=== PATIENT | female | born 1950 | race Caucasian/White ===

== ENCOUNTER 2024-03-25 08:56 | Inpatient (IN) | payer MEDICARE, MEDICAID, SELFPAY ==
[2024-03-25] VITALS (11 sets, daily range): BP systolic 107–148; BP diastolic 69–95; PULSE 92–121; RESP 12–92; TEMP 36.4–36.8; O2SAT 90–100; BMI 16.2
--- NOTE | 2024-03-25 09:18 | PC.NURSE ---
PT BROUGHT IN FROM HOME FOR LEFT SIDED CHEST PAIN, HERE YESTERDAY FOR SAME COMPLAINT, DISCHARGED AND TOLD TO COME BACK IF PAIN WORSENS TO COME BACK, PT REORTS IT IS WORSE. CALL [facility] IN [place], AWAITING PROVIDERS ASSESSMENT.
--- NOTE | 2024-03-25 09:36 | PD.EDCHEST ---
ED Chest Pain RME/HPI General Chief Complaint: Chest Pain Stated Complaint: CHEST WALL PAIN Time Seen by Provider: 03/25/24 09:24 Arrival date/time: 03/25/24 08:56 RME / HPI RME / HPI narrative: 74 year old female with history of chronic pain on Methadone, COPD on 3L home o2, HFrEF 30-35% 12/2023, s/p pacemaker placement presents to the ED BIBA from home for complaint of chest pain today. Reports she was evaluated here yesterday for similar pain which has yet to resolve. Pain located most to the left side of chest, described as aching in sensation, rating as moderate. Accompanied by nausea and nonbloody vomiting. Adds she is unable to tolerate anything by mouth, including her medications. Denies fevers, chills, cough, shortness of breath, abdominal pain, or urinary symptoms. Related Data Home Medications ?Medication ?Instructions ?Recorded ?Confirmed methadone 10 mg tablet 110 mg PO QDAY 06/11/23 03/10/24 Previous Rx's ?Medication ?Instructions ?Recorded food supplemt, lactose-reduced 0.1 See Rx Instructions PO TID 1 month 04/18/23 gram-1.18 kcal/mL oral liquid #90 doses (Ensure Complete) ipratropium 0.5 mg-albuterol 3 mg 3 ml inhalation Q6H PRN shortness 04/18/23 (2.5 mg base)/3 mL nebulization of breath or wheezing #180 mL soln albuterol sulfate 90 mcg/actuation 2 puff inhalation Q4H PRN sob 1 10/16/23 aerosol inhaler week #8.5 grams albuterol sulfate 2.5 mg/3 mL 2.5 mg (3 mL) inhalation Q6H PRN 10/30/23 (0.083 %) solution for nebulization shortness of breath or wheezing #90 mL lidocaine 5 % topical patch 3 patch topical QDAY #30 ea 11/29/23 fluticasone furoate 100 1 inh inhalation QDAY #60 ea 12/26/23 mcg-vilanterol 25 mcg/dose inhalation powder (Breo Ellipta) atorvastatin 40 mg tablet 40 mg PO QHS #30 tabs 01/21/24 carvedilol 3.125 mg tablet 3.125 mg PO BID #60 tabs 01/21/24 gabapentin 300 mg capsule 300 mg PO TID PRN pain 1 month #90 01/21/24 caps losartan 25 mg tablet 25 mg PO QDAY #30 tabs 01/21/24 paroxetine HCl 30 mg tablet 30 mg PO QDAY #90 tabs 01/21/24 promethazine 12.5 mg tablet 12.5 mg PO TID PRN nausea and 02/27/24 vomiting #90 tabs duloxetine 30 mg capsule,delayed 30 mg PO QDAY 1 month #30 caps 02/29/24 release clonazepam 0.5 mg tablet 0.5 mg PO BID PRN anxiety #60 tabs 03/04/24 metoclopramide HCl 10 mg tablet 10 mg PO Q6H PRN nausea and 03/24/24 (Reglan) vomiting #30 tabs Allergies Allergy/AdvReac Type Severity Reaction Status Date / Time No Known Allergies Allergy Verified 03/25/24 09:17 Review of Systems Review of Systems Narrative Review of Systems: GEN: No fever, no chills, no weight loss EYES: No discharge, no visual changes, no pain HEENT: No ear pain, no congestion, no sore throat PULM: No shortness of breath, no cough, no congestion CV: + chest pain, no dyspnea on exertion, no palpitations GI: +nausea, +vomiting, no diarrhea, no pain, no constipation : No frequency, no urgency and no dysuria MUSC/SKEL No joint pain, no back pain SKIN: No rash NEURO: No weakness, no headache Past Medical History Past Medical History CARDIAC: Positive Cardiac Arrhythmia, Atrial Fibrillation, Coronary Artery Disease and Hypertension RESPIRATORY: Positive Chronic Obstructive Pulmonary Disease (COPD), Asthma and Bronchitis MUSCULOSKELETAL: Positive Arthritis, Osteoporosis and Degenerative Disk Disease HEMATOLOGIC: Positive Anemia PSYCHO/SOCIAL: Positive Depression and Anxiety OTHER HISTORY: Positive Falls, Blood Transfusions, Human Immunodeficiency Virus (HIV), Clostridium Difficile and Cancer Surgical History SURGICAL: Positive Coronary Stent, Pacemaker and Hysterectomy Social History SMOKING STATUS: Former smoker SECOND HAND EXPOSURE: Yes SUBSTANCE USE: former substance user (Polysubstance abuse for 40 years ago) and marijuana (Occasionally) ED Exam Narrative Physical exam: GENERAL APPEARANCE: Well hydrated, well nourished, in no acute distress. Cachectic, skinny female. VITALS: All vitals were reviewed and the pulse ox is 95% on 2L which is normal according to my interpretation. HEENT: Normocephalic, atramatic, EOMI, EACs are patent. There is no bulge or retraction. Throat without erythema or exudate. Moist oromucosa. No jaundice NECK: Supple, no JVD or bruits. CARDIOVASCULAR: Heart regular without S3-S4 or murmur. No rubs or gallops. LUNGS/CHEST: Clear to auscultation bilaterally. No rales, rhonchi, or wheezing. Normal inspection. ABDOMEN: Soft, mildly distended, minimally tender in the left lower quadrant, with normal bowel sounds. No pulsatile masses. No rebound, rigidity, or guarding. No incarcerated hernia. EXTREMITIES: Normal inspection and palpation. No edema, clubbing, or cyanosis. Intact CSM SKIN: Warm and dry without rashes. Normal inspection. MUSCULOSKELETAL: No gross deformity, full ROM all extremities NEURO: Alert and oriented x3. Cranial nerves II through XII grossly intact. There are no other motor or sensory deficits noted. PSYCHIATRIC: Normal mood and affect. No psychosis Course Quality Measures none Orders Category Date Time Status CT Screening NOW Care 03/25/24 12:00 Active EKG (ED ONLY) *Do not use* NOW Care 03/25/24 09:[address] abdomen pelvis w con Stat Exams 03/25/24 11:59 Completed EKG (ED Only) Stat Exams 03/25/24 09:46 Draft XR abdomen 1V Stat Exams 03/25/24 09:46 Completed CBC Stat Lab 03/25/24 10:19 Completed CMP [Comprehensive Metabolic Panel] Stat Lab 03/25/24 10:19 Completed Lipase Stat Lab 03/25/24 10:19 Completed Troponin I Stat Lab 03/25/24 10:19 Completed Morphine Inj Med 03/25/24 12:00 Discontinued 4 mg IVP X1 ONE Ondansetron Inj [Zofran Inj] Med 03/25/24 12:00 Discontinued 4 mg IV X1 ONE Sodium Chloride 0.9% 1000 ml [Ns] 1,000 ml Med 03/25/24 09:47 Discontinued IV 500 mls/hr Vital Signs Vital signs: Vital Signs Temperature 98 F 03/25/24 09:06 Pulse Rate 109 H 03/25/24 09:06 Respiratory Rate 16 03/25/24 09:06 Blood Pressure 148/91 H 03/25/24 09:06 Pulse Oximetry (%) 100 03/25/24 09:06 Oxygen Delivery Method Nasal Cannula 03/25/24 09:06 Oxygen Flow Rate 2 03/25/24 09:06 Chest Pain MDM Narrative MDM Narrative:: Gemini Wilder am scribing for and in the presence of Dr. Romo. WBC is 32,000. Sodium is 131 BUN of 29 indicating that she is dehydrated. Potassium is 3.1. Lipase is 70. Troponin is negative. Upright abdominal x-ray unfortunately getting cut off at the mid abdomen. So difficult to tell. But is still signs of small bowel obstruction. This x-ray was interpreted by me. No free air. [facility] [address] [place] [address] [place] [facility] Report Signed Patient: ELKE LEA. Record#: [id number] Birthdate: 1950 Age/Sex: 74 / F Location: [facility] Attending Dr: Ordering Physician: Arsh Romo MD Date of Service: 03/25/24 Procedure(s): CT abdomen pelvis w con Accession Number(s): [id number] cc: Michael Topete MD; NO PRIMARY/FAMILY,PHYSICIAN; Arsh Romo MD~ Examination: CT abdomen with intravenous contrast CT pelvis with intravenous contrast 2-D coronal reconstructions 2-D sagittal reconstructions Date and time of exam:March 25, 2024 1245 hrs. Indications: Generalized abdominal pain with nausea vomiting beginning 4 days ago. CTDI: vol (mGy) 4.95 DLP: (mGycm) 247 Technique: Multiple axial sections of the abdomen and pelvis have been obtained. 64 slice high-resolution scanner used. 3 mm axial sections have been obtained, post intravenous injection 36 cc [id number] 2-D sagittal, coronal reconstructions obtained. Low dose protocols were performed. One or more of the following dose reduction techniques were used; automated exposure control, adjustment of the mA and/or KV according to patient size, use of iterative reconstruction technique. Findings: COPD with focal areas of airspace destruction No focal liver lesions No gallstones Fluid distended stomach Markedly fluid distended small bowel loops to ileal level Colon is decompressed No definite pancreatic mass Heavy abdominal aortic calcification no aneurysmal dilatation No hydronephrosis Probable right renal arterial calcification No bladder mass Left hip bipolar hemiarthroplasty with satisfactory alignment Advanced right hip osteoarthritis Severe osteopenia Advanced degenerative disc disease L3-L4 and L2-L3 Impression: High-grade mechanical small bowel obstruction, consider Gastrografin small bowel series follow-up Dictated By: Michael Topete MD Signed By: <Electronically signed by Michael Topete MD in OV> 03/25/24 1335 DD/ 1332 TD/TT: 03/25/24 1332 Relief Driller: MCKENZIE Chest x-ray was done yesterday and there is no reason to repeat it. Twelve-lead EKG that was done at 10:06 AM and interpreted by me: Sinus rhythm. Heart rate 105. Left axis. No ST elevation. No ST depression. No PVC. No STEMI. Right bundle branch block pattern. 2:15 PM, I spoke to and discussed with Dr. Abdi, surgeon on-call. He said to tell the hospitalist to do small bowel series and if it is positive they can call me. 2:40 PM, I spoke to and discussed with Dr. Nance, hospitalist on-call. He agreed to admit the patient for further evaluation and treatment. In the meantime I am ordering for n.p.o. IV fluid and nasogastric suctioning Critical care time is approximately 35 minutes excluding any procedure. The high probability of sudden, clinically significant deterioration in the patient?s condition required the highest level of my preparedness to intervene urgently. The services I provided to this patient were to treat and/or prevent clinically significant deterioration. Services included the following: chart data review, reviewing nursing notes and/or old charts, documentation time, strategic sourcing consultant collaboration regarding findings and treatment options, medication orders and management, direct patient care, vital sign assessments and ordering, interpreting and reviewing diagnostic studies and lab tests. Aggregate critical care time includes only time during which I was engaged in work directly related to the patient?s care, as described above, whether at bedside or elsewhere in the Emergency Department. It did not include time spent performing other reported procedures or the services of residents, students, nurses or physician assistants. Patient data External records reviewed:: [facility] [place] previous records (I reviewed ED visit yesterday 03/24/2024) and EMS form Clinical information provided by:: patient and EMS Social determinants that could affect healthcare access:: substance use (previous heroin use currently on methadone ) Patient has the following chronic illnesses:: chronic pain on Methadone, COPD on 3L home o2, HFrEF 30-35% 12/2023, s/p pacemaker placement How is presenting disease/condition affected by chronic disease/condition?: exacerbated by Evaluation data The following diagnostics were reviewed and interpreted by me:: lab results Lab and/or radiology exams considered but not ordered:: None Interpretation Summary: See MDM Medications / Prescriptions Medications or Prescriptions considered but not ordered:: None Medication administrations:: Medication Administration History Discontinued Medications Sodium Chloride (Ns) 1,000 mls @ 500 mls/hr IV .Q2H ONE Stop: 03/25/24 11:46 Last Infusion: 03/25/24 12:40 Dose: Infused Documented By: Admin: 03/25/24 10:38 Dose: 500 mls/hr Documented By: RAYMOND Morphine Sulfate (Morphine Sulf Inj 10 Mg/Ml Vial) 4 mg IVP X1 ONE Stop: 03/25/24 12:01 Last Admin: 03/25/24 13:03 Dose: 4 mg Documented By: RAYMOND Ondansetron HCl (Ondansetron Inj 2 Mg/Ml Inj 2 Ml) 4 mg IV X1 ONE; Protocol Stop: 03/25/24 12:01 Last Admin: 03/25/24 13:04 Dose: 4 mg Documented By: RAYMOND See above Consultations Consultation(s) initiated? (list below): Yes Diagnosis Most likely diagnosis given after review of the tests above:: High-grade small bowel obstruction Admission Indicated Admission indicated?: indicated Admission Request Was there a request for admission?: Yes Admission Attestation Admission request attestation: Discussed case with [] from Hospitalist service regarding admission. Discussed patients ED course, exam findings, labs, and radiology results. The Hospitalist [agrees,declines] to accept the patient for admission. Disposition Plan Disposition Plan: Admit Discharge Plan Plan Patient Disposition: Admit Acute Care w/in Hospital Disposition Comment: Stable Prescriptions/Referrals Prescriptions/Med Rec: No Action Ensure Complete 0.1 gram-1.18 kcal/mL liquid See Rx Instructions PO TID 30 Days Qty: 90 2RF Rx Instructions: 10oz orally three times a day; ipratropium-albuterol 0.5 mg-3 mg(2.5 mg base)/3 mL solution for nebulization 3 ml inhalation Q6H PRN (Reason: shortness of breath or wheezing) Qty: 180 3RF lidocaine 5 % adhesive patch,medicated 3 patch topical QDAY Qty: 30 0RF Rx Instructions: leave on most painful area for up to 12 hrs fluticasone furoate-vilanterol [Breo Ellipta] 100-25 mcg/dose blister with device 1 inh inhalation QDAY Qty: 60 1RF albuterol sulfate 90 mcg/actuation HFA aerosol inhaler 2 puff INHALATION Q4H PRN (Reason: sob) 7 Days Qty: 8.5 5RF paroxetine HCl 30 mg tablet 30 mg PO QDAY Qty: 90 2RF carvedilol 3.125 mg tablet 3.125 mg PO BID Qty: 60 2RF Rx Instructions: must administer with a meal/food atorvastatin 40 mg tablet 40 mg PO QHS Qty: 30 3RF gabapentin 300 mg capsule 300 mg PO TID MDD 3 PRN (Reason: pain) 30 Days Qty: 90 3RF losartan 25 mg tablet 25 mg PO QDAY Qty: 30 3RF promethazine 12.5 mg tablet 12.5 mg PO TID PRN (Reason: nausea and vomiting) Qty: 90 0RF albuterol sulfate 2.5 mg /3 mL (0.083 %) solution for nebulization 2.5 mg inhalation Q6H PRN (Reason: shortness of breath or wheezing) Qty: 90 2RF clonazepam 0.5 mg tablet 0.5 mg PO BID PRN (Reason: anxiety) Qty: 60 0RF duloxetine 30 mg Capsule,Delayed Release(Dr/Ec) 30 mg PO QDAY 30 Days Qty: 30 0RF metoclopramide HCl [Reglan] 10 mg tablet 10 mg PO Q6H PRN (Reason: nausea and vomiting) Qty: 30 0RF methadone 10 mg Tablet 110 mg PO QDAY Referrals: No Primary/Family,Physician [Primary Care Provider] - In 1 week Problem List Clinical Impression: SBO (small bowel obstruction), Dehydration Patient/Caregiver Discharge Instructions Print Language: [place] Stand Alone Forms: [facility] Award Info., Patient Portal Info Letter
--- NOTE | 2024-03-25 09:46 | EKG_ITS ---
[facility] Test Date: 2024-03-25 Pat Name: ELKE LEA Department: Room: - Gender: Female Classification Inspector: : 1950 Requested By: Arsh Romo Order Number: [id number] Reading MD: Arsh Romo Measurements Intervals [place] Rate: 105 P: 82 ND: 119 QRS: -74 QRSD: 94 T: 89 QT: 343 QTc: 455 Interpretive Statements SINUS TACHYCARDIA WITH SHORT ND INTERVAL POSSIBLE LEFT ATRIAL ENLARGEMENT [-0.1mV P WAVE IN V1/V2] MARKED LEFT AXIS DEVIATION [QRS AXIS < -30] INCOMPLETE RIGHT BUNDLE BRANCH BLOCK [90+ ms QRS DURATION, TERMINAL R IN V1/V2, 40+ ms S IN I/aVL/V4/V5/V6] ST DEVIATION AND MODERATE T-WAVE ABNORMALITY, CONSIDER ANTERIOR ISCHEMIA [-0.1+ mV T WAVE IN V3/V4] Compared to ECG 03/24/2024 15:10:24 Short ND interval now present Incomplete right bundle-branch block now present T-wave abnormality now present Possible ischemia now present ST (T wave) deviation no longer present /store/S0/[id number]/ecg/[id number].pdf
--- NOTE | 2024-03-25 09:46 | XR_ITS ---
Examination: Abdomen AP single view Technique: AP portable supine abdomen, single view Exam date and time: March 25, 2024 0952 hrs. Indications: Constipation this week Findings: Multiple air distended small bowel loops No free air Mild elevation left hemidiaphragm Cardiac leads satisfactory position Impression: Small bowel obstruction pattern, consider CT scan abdomen pelvis post intravenous contrast follow-up
[2024-03-25 10:30] LABS: Basophils % (Auto) 0 % (0-2.5); Eosinophils % (Auto) 0 % (0-10); Hematocrit 36.9 % (36.0-46.0); Hemoglobin 12.1 g/dL (12.0-16.0); Immature Granulocytes % (Auto) 1 % (0-0); Immature Granulocytes Auto 0.13 Thou/mm3 (0.00-0.00); Lymphocytes # (Auto) 1.7 Thou/mm3 (1.0-4.8); Lymphocytes % (Auto) 8 % (10-50); Mean Corpuscular HGB Conc 32.8 g/dl (31.0-37.0); Mean Corpuscular Volume 89 fL (80-100); Monocytes # (Auto) 0.7 Thou/mm3 (0.0-0.8); Monocytes % (Auto) 3 % (0-12); Neutrophils # (Auto) 19.8 Thou/mm3 (1.8-7.7); Neutrophils % (Auto) 88 % (37-80); Nucleated Red Blood Cell % 0 /100 WBC (0); Platelet Count 509 Thou/mm3 (140-440); Red Blood Count 4.17 Miln/mm3 (4.00-5.20); White Blood Count 22.4 Thou/mm3 (3.6-11.0)
[2024-03-25] MEDS: SODIUM CHLORIDE 0.9% 1000 ML 1,000 ML 500 ML IV (10:38)
[2024-03-25 11:11] LABS: Alanine Aminotransferase < 7 U/L (10-49); Albumin, Serum 3.8 gm/dL (3.4-4.8); Alkaline Phosphatase 104 U/L (46-116); Anion Gap 7 (7-16); Aspartate Amino Transferase 19 U/L (0-34); BUN/Creatinine Ratio 36 Ratio (12-20); Bilirubin,Total 0.3 mg/dL (0.3-1.2); Blood Urea Nitrogen 29 mg/dL (9-23); Calcium 9.9 mg/dL (8.3-10.6); Calcium (Corrected) 10.1 mg/dL (8.5-10.1); Carbon Dioxide > 40.0 mMol/L (20.0-31.0); Chloride 84 mMol/L (98-107); Creatinine (Component) 0.8 mg/dL (0.6-1.3); Estimated Creatinine Clearance 49.3 mL/min (>60); Globulin 3.8 gm/dL (2.3-3.5); Glucose 128 mg/dL (74-106); Lipase 70 U/L (12-53); Osmolality,Calculated 270 (275-295); Potassium 3.1 mMol/L (3.4-5.1); Sodium 131 mMol/L (136-145); Total Protein 7.6 gm/dL (5.7-8.2); Troponin I < 0.020 ng/mL (0.0-0.045); eGFR > 60 See Note
--- NOTE | 2024-03-25 11:59 | XR_ITS ---
Examination: CT abdomen with intravenous contrast CT pelvis with intravenous contrast 2-D coronal reconstructions 2-D sagittal reconstructions Date and time of exam:March 25, 2024 1245 hrs. Indications: Generalized abdominal pain with nausea vomiting beginning 4 days ago. CTDI: vol (mGy) 4.95 DLP: (mGycm) 247 Technique: Multiple axial sections of the abdomen and pelvis have been obtained. 64 slice high-resolution scanner used. 3 mm axial sections have been obtained, post intravenous injection 36 cc Isovue-[id number] 2-D sagittal, coronal reconstructions obtained. Low dose protocols were performed. One or more of the following dose reduction techniques were used; automated exposure control, adjustment of the mA and/or KV according to patient size, use of iterative reconstruction technique. Findings: COPD with focal areas of airspace destruction No focal liver lesions No gallstones Fluid distended stomach Markedly fluid distended small bowel loops to ileal level Colon is decompressed No definite pancreatic mass Heavy abdominal aortic calcification no aneurysmal dilatation No hydronephrosis Probable right renal arterial calcification No bladder mass Left hip bipolar hemiarthroplasty with satisfactory alignment Advanced right hip osteoarthritis Severe osteopenia Advanced degenerative disc disease L3-L4 and L2-L3 Impression: High-grade mechanical small bowel obstruction, consider Gastrografin small bowel series follow-up
--- NOTE | 2024-03-25 12:39 | PC.NURSE ---
Pt was taken to Ct at this time
[2024-03-25] MEDS: MORPHINE SULF INJ 10 MG/ML VIAL 4 MG IVP (13:03)
[2024-03-25] MEDS: ONDANSETRON INJ 2 MG/ML INJ 2 ML 4 MG IV (13:04)
--- NOTE | 2024-03-25 15:30 | PD.RESHP ---
Documentation for date of: 03/25/24 HPI History of Present Illness History of present illness: Chief complaint Vomiting HPI: Patient is a 74-year-old female with an extensive medical history including coronary artery disease, HFrEF 30-35%, s/p pacemaker 2018, COPD on 2 L home O2, squamous cell carcinoma of the lung [02/2024]. She presented today to the ED with multiple episodes of non-bilious vomiting overnight and absolute constipation. There was no associated hematemesis, and no flatus passed since yesterday. Of note patient is on methadone 110 mg p.o. daily for chronic lower back pain. In the ED, vitals showed BP 148/91 Pulse 109 Resp 16 Temp 98F SpO2 100 on 2 L NC On imaging, Adomen/pelvis CT : High-grade mechanical small bowel obstruction, consider Gastrografin small bowel series follow-up. EKG: Sinus tachycardia, rate 105 Patient was admitted for the work-up and management of Small bowel Obstruction General Surgery, Dr. Abdi was consulted and is closely following the case. Past medical history: ? Coronary artery disease ? HFrEF ? Essential hypertension ? Hyperlipidemia ? PTSD ? Depression ? COPD ? Chronic back pain ? Squamous cell carcinoma of lung [02/2024] Medication list: ?Albuterol inhaler 2 puffs every 4 hourly as needed ? Atorvastatin 40 mg p.o. at bedtime ? Carvedilol 3.125 mg p.o. twice daily ? Clonazepam 0.5 mg p.o. twice daily ? Duloxetine 30 mg p.o. daily ? Fluticasone/vilanterol 25 mcg inhaler ? Gabapentin 300 mg p.o. 3 times daily as needed ? Ipratropium/albuterol 3 mg inhalation Q6 hourly ? Lidocaine 5% topical patch ? Losartan 25 mg p.o. daily ? Methadone 110 mg p.o. daily ? Metoclopramide 10 mg p.o. as needed ? Promethazine 12.5 mg p.o. 3 times daily Past surgical history: ?Left hip replacement ?Hysterectomy Allergies: NKDFA Social history: Tobacco use: 40 pack year history. Quit 1 month ago ETHO use: Denies Illicit drug use: Denies Social History Note: lives with daughter Review of Systems Review of Systems Systems Reviewed: All systems reviewed, normal except as documented Exam Vital Signs Temp Pulse Resp BP Pulse Ox O2 Del Method O2 Flow Rate 97.7 F 121 H 14 118/92 H 98 Nasal Cannula 2 03/25/24 14:12 03/25/24 14:12 03/25/24 14:12 03/25/24 14:12 03/25/24 14:12 03/25/24 14:12 03/25/24 14:12 Narrative Exam Constitutional Alert, oriented x 3 and in mild distress. Cachexia and temporal wasting HEENT Vision grossly intact. Patent nares. Trachea midline Respiratory Pacemaker noted on left and generalized wheezing bilaterally in all lung jacobs Cardiovascular S1 and S2 audible, RRR. No murmurs carotid bruit. No gross JVD. Abdominal Tense and generalized tenderness to palpation in all quadrants. Absent BS Genitourinary No bladder tenderness, no flank pain. Normal to palpation Musculoskeletal Extremities tone within normal limits. No LE edema. Neurological CN II - XII grossly intact. Extremity motor and sensation grossly intact. Skin Warm, dry and intact. No apparent lesions. Psychiatric Patient has good affect, is cooperative Results: Labs 03/27/24 04:45 03/27/24 04:45 Labs: Short CBC 03/25/24 Range/Units 10:19 WBC 22.4 H (3.6-11.0) Thou/mm3 Hgb 12.1 (12.0-16.0) g/dL Hct 36.9 (36.0-46.0) % Plt Count 509 H D (140-440) Thou/mm3 BMP 03/25/24 10:19 Sodium 131 L Potassium 3.1 L Chloride 84 L Carbon Dioxide > 40.0 H BUN 29 H Creatinine 0.8 Glucose 128 H Calcium 9.9 Cardiac Enzymes 03/25/24 Range/Units 10:19 Troponin I < 0.020 (0.0-0.045) ng/mL Liver Function 03/25/24 Range/Units 10:19 Total Bilirubin 0.3 (0.3-1.2) mg/dL AST 19 (0-34) U/L ALT < 7 L (10-49) U/L Alkaline Phosphatase 104 (46-116) U/L Albumin 3.8 D (3.4-4.8) gm/dL Quality Measures Quality Measures none Advance care planning discussed with:: patient Medications Home Medications and Allergies Home Medications ?Medication ?Instructions ?Recorded ?Confirmed ?Type methadone 10 mg tablet 110 mg PO QDAY 06/11/23 03/25/24 History omeprazole 40 mg capsule,delayed 40 mg PO DAILY 03/25/24 03/25/24 History release Allergies Allergy/AdvReac Type Severity Reaction Status Date / Time No Known Allergies Allergy Verified 03/25/24 09:17 Visit Medications Acetaminophen (Acetaminophen Supp 650 Mg Supp) 650 mg OK Q6HR PRN PRN Reason: Fever > 100.3 or pain 1-6 Stop: 04/24/24 14:58 Carvedilol (Carvedilol 3.125 Mg Tablet) 3.125 mg PO BIDWM HUYEN Stop: 04/24/24 17:29 Gabapentin (Gabapentin 300 Mg Capsule) 300 mg PO TID PRN PRN Reason: AGITATION Stop: 04/24/24 15:14 Heparin Sodium (Porcine) (Heparin Sod Inj 5000 Unit/Ml Vial) 5,000 unit SC Q8HR HUYEN Stop: 04/08/24 15:14 Potassium Chloride (Kcl Ivpb) 10 meq in 100 mls @ 100 mls/hr IV Q1H STA Stop: 03/25/24 15:48 Sodium Chloride (Ns) 1,000 mls @ 50 mls/hr IV .Q20H HUYEN Stop: 04/24/24 14:59 Methadone HCl (Methadone Hcl 10 Mg Tablet) 110 mg PO QDAY HUYEN Stop: 03/31/24 08:59 Morphine Sulfate (Morphine Sulf Inj 10 Mg/Ml Vial) 2 mg IVP Q4HR PRN PRN Reason: PAIN SCALE 7-10 (Severe Stop: 03/30/24 15:21 Ondansetron HCl (Ondansetron Inj 2 Mg/Ml Inj 2 Ml) 4 mg IV Q6H PRN; Protocol PRN Reason: NAUSEA OR VOMITING Stop: 04/24/24 15:03 Discontinued Medications Acetaminophen (Acetaminophen Supp 650 Mg Supp) 650 mg OK Q6HR PRN PRN Reason: Fever > 100.3 or pain Stop: 04/24/24 14:58 Sodium Chloride (Ns) 1,000 mls @ 500 mls/hr IV .Q2H ONE Stop: 03/25/24 11:46 Last Infusion: 03/25/24 12:40 Dose: Infused Sodium Chloride (Ns) 1,000 mls @ 90 mls/hr IV .Q11H7M ONE Stop: 03/26/24 01:54 Lidocaine HCl (Lidocaine Jelly 2% (Urojet) 10 Ml Tube) 10 ml TOP X1 STA Stop: 03/25/24 14:48 Morphine Sulfate (Morphine Sulf Inj 10 Mg/Ml Vial) 4 mg IVP X1 ONE Stop: 03/25/24 12:01 Last Admin: 03/25/24 13:03 Dose: 4 mg Ondansetron HCl (Ondansetron Inj 2 Mg/Ml Inj 2 Ml) 4 mg IV X1 ONE; Protocol Stop: 03/25/24 12:01 Last Admin: 03/25/24 13:04 Dose: 4 mg Assessment & Plan Plan Patient is a 74-year-old female with an extensive medical history including coronary artery disease, HFrEF 30-35%, s/p pacemaker 2018, COPD on 2 L home O2, squamous cell carcinoma of the lung [02/2024]. She presented today to the ED with multiple episodes of non-bilious vomiting overnight and absolute constipation. There was no associated hematemesis, and no flatus passed since yesterday. Of note patient is on methadone 110 mg p.o. daily for chronic lower back pain. On imaging, Adomen/pelvis CT : High-grade mechanical small bowel obstruction, consider Gastrografin small bowel series follow-up. General Surgery, Dr. Abdi was consulted and is closely following the case. Patient was admitted for the work-up and management of Small bowel Obstruction. 1. Small bowel obstruction?acute 2. Leukocytosis Presentation: Nonbilious vomiting and constipation, no flatus Exam: Absent bowel sounds and generalized tenderness to abdomen. Patient has history of abdominal surgery, hysterectomy. Etiology: Adhesions, methadone use General surgery, Dr. Abdi consulted. On admission WBC 22.4 Plan: ? N.p.o. ? Conservative management ? NGT on suction ? IVF D5/NS at 75 mL/hour - CXR after NGT to confirm placement. - KUB xray on 03/26 to confirm resolution. ? If no resolution for small bowel series tomorrow. ? General Surgery, Dr Abdi consulted. Appreciate recommendations 3. Systolic congestive heart failure with reduced ejection fraction [30-35%] BNP [03/24] = 88 NYHA : Stage C , Class III Echo : [12/30] echocardiogram: Mild systolic dysfunction. Akinesis apical septal and lateral. Estimated EF 30-35%. Home diuretic : none Plan: - Daily weight - Input/output charting ? Carvedilol 3.125 mg p.o. twice daily 4. COPD?chronic 5. Metabolic Alkalosis - chronic Chronic metabolic alkalosis in setting of compensated COPD Patient is on 2 L home oxygen as baseline Home medication fluticasone/vilanterol 1 puff daily On admission : HCO3 > 40 Plan: ? O2 therapy as needed to maintain sats at 88-92% ? DuoNebs every 6 hourly as needed 6. Essential hypertension?chronic On admission BP 148/91 Home medication losartan 25 mg p.o. daily Plan: ? Home medication held for now as patient is n.p.o. for SBO ? To consider restarting home medication if SBP more than 160 7. Chronic lower back pain Home medication methadone 110 mg p.o. daily and gabapentin 300 mg p.o. 3 times daily as needed. Plan: ? Resume methadone 110 mg p.o. daily ? Resume gabapentin 300 mg p.o. 3 times daily as needed Health maintenance: Disposition: Conservative management SBO. NGT on suction and IVF Diet: NPO Lines: pIVs GI Prophylaxis: Ondansetron Thrombo Prophylaxis: Heparin Code status: DNR Plan of care discussed with attending Dr Nance and Dr. Ovalle PGY 2 Todd Najera MD PGY 1 Senior resident attestation: I discussed with and supervised the cisco certified internetwork expert physician who took care of this patient. I personally saw and examined the patient and discussed the assessment and plan with the entire medicine team, including my attending Dr. Lee Ann MD, I agree with the assessment and plan as documented above. Patient is a 74-year-old female, past medical history of coronary artery disease, ischemic and toxic cardiomyopathy, HFrEF 30 to 35%, status post pacemaker 2019, opioid use disorder, currently on methadone, COPD on 2 L home oxygen, squamous cell carcinoma of the lung, who presented to the ER due to intractable nausea and vomiting as well as constipation. Patient reported she was not able to pass gas all day, but did have a bowel movement yesterday. Small bowel obstruction: Initial imaging in the ER showed high-grade mechanical small bowel obstruction, distended fluid-filled stomach, small bowel distention and no air in rectum. General surgeon Dr. Abdi was consulted. Patient is kept n.p.o., started on IV fluids and nasogastric tube with continuous suction. Chest x-ray postprocedure showed NG tube in good position. Plan for small bowel series with Gastrografin once stomach decompression is achieved. Opiate abuse disorder: Patient currently on 110 mg methadone, reported she takes her methadone 4 AM every morning, but this morning when she took it she immediately vomited it out, we will resume patient's home dose of methadone daily. HFrEF: Continue with carvedilol 3.125 mg twice daily, patient has a history of pacemaker but does not remember when she last saw her anode builder. Chart review shows patient was seen by Dr. Earl Strauss recently during hospital visit. EKG shows sinus tachycardia, no acute ischemic changes. Currently patient is clinically dry on examination. No evidence of volume overload. COPD: Continue with DuoNebs Metabolic alkalosis: Likely secondary to continuous vomiting and loss of gastric contents. MD Vasquez PGY2 Attending Provider Attestation/Addendum Face to face evaluation was performed by me. I have personally seen and examined the patient. I discussed the assessment and plan with the entire medicine team. I reviewed available medical records, imaging studies, laboratory results. I agree with the above subjective data, objective findings, assessment and plan except as corrected by me or noted below Abdominal pain, periumbilical mainly Nausea and vomiting Pacemaker placement Hx of DM Hx of opioid dependance now on methadone Rx - HLD - IV Fluids, NPO, prn antiemetics, NG tube with suction. Gen Surgery was contacted Dr Abdi who recommended to obtain Small bowel series - due to severe small bowel distention and significant amount of suction fluids will postpone SB series until tmr. Monitor clinical course closely
--- NOTE | 2024-03-25 15:33 | PD.EVENT ---
Documentation for date of: 03/25/24 Event Note Event Note: Advance care planning spent extra 18 minutes separately Patient awake and oriented has DM capacity no advanced directives available. States that has as niece who can potentially be her next of kin maybe, but no Medical POA. Discussed with her code status in state of [place], and patient wants to be DNR.
[2024-03-25] MEDS: POTASSIUM CHL 10 mEq IVPB 10 MEQ/100 ML BAG 100 MEQ IV ×2 (15:54→20:00)
[2024-03-25] MEDS: LIDOCAINE JELLY 2% (Urojet) 10 ML TUBE TOP (15:55)
--- NOTE | 2024-03-25 16:36 | XR_ITS ---
Examination: AP chest single view Technique one AP portable semiupright chest single view Exam date and time: March 25, 2024 1645 hrs. Comparison February 29, 2024 Indications: Post orogastric tube placement Findings: Orogastric tube in the stomach, tip below the level film COPD with bullous change at the right apex Normal heart size Cardiac leads stable position Lobulation right hemidiaphragm Impression: Severe COPD including bullous change at the right apex and right apical parenchymal scarring Orogastric tube in stomach satisfactory position
[2024-03-25] MEDS: DEXTROSE 5%-NS 1,000 ML 60 ML IV (16:41)
--- NOTE | 2024-03-25 17:32 | PC.NURSE ---
RFreport given to Anjelica YOUNG
[2024-03-25] MEDS: ALBUTEROL/IPRATROPIUM (Duoneb) RT SOL 3 ML NEBU INH (19:28)
[2024-03-25] MEDS: MORPHINE SULF INJ 10 MG/ML VIAL 2 MG IVP (19:59)
--- NOTE | 2024-03-25 20:09 | ESCONSULT_ITS ---
HPI Consult details Consult date: 03/25/24 Reason for consultation narrative: Small bowel obstruction History of present illness: 74-year-old female with history of hypertension, hyperlipidemia, CAD status post pacemaker, COPD on home oxygen, was recently diagnosed with squamous cell carcinoma of the lung. She came into the emergency department with a week history of abdominal pain with nausea and vomiting. Her symptom has been gettin g progressively worse over the past few days and she has not been able to eat or tolerate any food. She states that she has been passing flatus and her last bowel movement was yesterday. CT scan revealed dilated loops of small bowel concerning for high-grade small bowel obstruction. An NG tube was placed and patient was admitted for further management. Review of Systems Constitutional Constitutional: Denies chills and Denies fever(s) Cardiovascular Cardiovascular: Denies chest pain Respiratory Respiratory: Denies cough Gastrointestinal Gastrointestinal: Reports abdominal pain, Reports nausea and Reports vomiting Genitourinary Genitourinary: Denies difficulty voiding Hematologic/Lymphatic Hematologic/Lymphatic: Denies easy bleeding and Reports easy bruising Past Medical History Surgical History OTHER SURGICAL HX: Hysterectomy, left hip hemiarthroplasty, pacemaker implantation Social History SMOKING STATUS: Former smoker (Recently quit smoking) SUBSTANCE USE: marijuana ALCOHOL: Former Meds Home Medications and Allergies Home Medications ?Medication ?Instructions ?Recorded ?Confirmed ?Type methadone 10 mg tablet 110 mg PO QDAY 06/11/23 03/10/24 History Allergies Allergy/AdvReac Type Severity Reaction Status Date / Time No Known Allergies Allergy Verified 03/25/24 09:17 Exam Vital Signs Temp Pulse Resp BP Pulse Ox O2 Del Method O2 Flow Rate 97.6 F 110 H 15 107/85 H 90 L Room Air 2 03/25/24 19:51 03/25/24 19:51 03/25/24 19:51 03/25/24 19:51 03/25/24 19:51 03/25/24 19:51 03/25/24 14:12 Constitutional Constitutional: no acute distress Routine Abdominal Exam Comments: Abdomen is soft and very minimally distended with hypoactive bowel sounds. No evidence of peritonitis or rebound tenderness at this time Results Results: Laboratory Laboratory results: results reviewed Results: Imaging CT scan - abdomen: report reviewed and image reviewed CT scan - pelvis: report reviewed and image reviewed Assessment & Plan Problem List (1) Intestinal adhesions [bands], unspecified as to partial versus complete obstruction: Status: Acute Plan Keep patient n.p.o. with IV fluids and NG tube decompression. Will obtain small bowel series tomorrow. Clinically patient is stable, abdominal exam is benign at this time. No indications for surgical intervention at this time, I will follow her during hospitalization. (1) Intestinal adhesions [bands], unspecified as to partial versus complete obstruction Qualifiers: Intestinal obstruction extent: unspecified extent Qualified Code(s): K56.50 - Intestinal adhesions [bands], unspecified as to partial versus complete obstruction
[2024-03-25] MEDS: HEPARIN SOD INJ 5000 UNIT/ML VIAL SC (21:30)
[2024-03-26] VITALS (12 sets, daily range): BP systolic 92–140; BP diastolic 59–86; PULSE 76–126; RESP 16–95; TEMP 36.1–36.4; O2SAT 90–99; BMI 12.9
--- NOTE | 2024-03-26 | XR_ITS ---
Examination: Abdomen AP single view Technique: AP portable supine abdomen, single view Exam date and time: March 26, 2024 1553 hrs. Indications: 5 are delayed film post small bowel series today abdominal pain and distention Findings: Contrast is diluted in dilated jejunal loops, measuring up to 5.4 cm Impression: Small bowel obstruction pattern, multiple additional delayed films will be obtained
--- NOTE | 2024-03-26 | XR_ITS ---
Examination: Abdomen AP single view Technique: AP portable supine abdomen, single view Exam date and time: Every 2023 hrs. Indications: Abdominal pain and distention this week, nine-hour delayed film post small bowel series today. Findings: Contrast diluted in small bowel loops Impression: Contrast is diluted in small bowel loops Multiple additional delayed films will be obtained
--- NOTE | 2024-03-26 | XR_ITS ---
Examination: Abdomen AP single view Technique: AP portable supine abdomen, single view Exam date and time: March 26, 2024 at 1842 hrs. Indications: Abdominal pain and distention this week, 7 hour delayed film post small bowel series today Findings: Contrast primarily in the stomach in jejunal loops Prominently distended small bowel loops Impression: Small bowel obstruction pattern Multiple additional delayed films will be obtained
--- NOTE | 2024-03-26 | XR_ITS ---
Examination: Abdomen AP single view Technique: AP portable supine abdomen, single view Exam date and time: March 26, 2024 1307 hrs. Indications: Abdominal pain and distention this week, 2 hour delayed film post small bowel series today Findings: Contrast present in the stomach and duodenal sweep Impression: Contrast present in the stomach and duodenal sweep Multiple additional delayed films will be obtained
--- NOTE | 2024-03-26 | XR_ITS ---
Examination: Abdomen AP single view Technique: AP portable supine abdomen, single view Exam date and time: March 26, 2024 1226 hrs. Indications: Abdominal pain and distention this week, 1 hour delayed film post small bowel series today. Findings: Contrast remains in the stomach Impression: Contrast remains in the stomach, multiple additional delayed films will be obtained
[2024-03-26 05:16] LABS: Basophils % (Auto) 0 % (0-2.5); Eosinophils % (Auto) 0 % (0-10); Hemoglobin 11.6 g/dL (12.0-16.0); Immature Granulocytes % (Auto) 1 % (0-0); Immature Granulocytes Auto 0.09 Thou/mm3 (0.00-0.00); Lymphocytes # (Auto) 1.5 Thou/mm3 (1.0-4.8); Lymphocytes % (Auto) 9 % (10-50); Mean Corpuscular HGB Conc 32.2 g/dl (31.0-37.0); Mean Corpuscular Hemoglobin 28.4 pg (25.0-35.0); Mean Corpuscular Volume 88 fL (80-100); Monocytes # (Auto) 0.7 Thou/mm3 (0.0-0.8); Monocytes % (Auto) 4 % (0-12); Neutrophils # (Auto) 14.7 Thou/mm3 (1.8-7.7); Neutrophils % (Auto) 86 % (37-80); Nucleated Red Blood Cell % 0 /100 WBC (0); Platelet Count 481 Thou/mm3 (140-440); RDW Standard Deviation 43.9 fL (36.4-46.3); Red Blood Count 4.09 Miln/mm3 (4.00-5.20)
--- NOTE | 2024-03-26 06:09 | PC.NURSE ---
NG tube 1600 mL output at the end of shift
[2024-03-26 06:16] LABS: Alanine Aminotransferase < 7 U/L (10-49); Albumin, Serum 3.6 gm/dL (3.4-4.8); Alkaline Phosphatase 97 U/L (46-116); Anion Gap 8 (7-16); Aspartate Amino Transferase 16 U/L (0-34); BUN/Creatinine Ratio 46 Ratio (12-20); Bilirubin,Total 0.3 mg/dL (0.3-1.2); Blood Urea Nitrogen 37 mg/dL (9-23); Calcium 9.7 mg/dL (8.3-10.6); Carbon Dioxide > 40.0 mMol/L (20.0-31.0); Chloride 87 mMol/L (98-107); Creatinine (Component) 0.8 mg/dL (0.6-1.3); Estimated Creatinine Clearance 39.2 mL/min (>60); Globulin 3.5 gm/dL (2.3-3.5); Glucose 149 mg/dL (74-106); Magnesium 2.2 mg/dL (1.6-2.6); Osmolality,Calculated 281 (275-295); Phosphorous 3.3 mg/dL (2.4-5.1); Potassium 2.9 mMol/L (3.4-5.1); Sodium 135 mMol/L (136-145); Total Protein 7.1 gm/dL (5.7-8.2); eGFR > 60 See Note
[2024-03-26] MEDS: ALBUTEROL/IPRATROPIUM (Duoneb) RT SOL 3 ML NEBU INH ×3 (06:33→19:24)
--- NOTE | 2024-03-26 07:41 | XR_ITS ---
Examination: Abdomen AP single view Technique: AP portable supine abdomen, single view Exam date and time: March 26, 2024 at 0806 hrs. Comparison 03/25/2024 Indications: Abdominal distention this week. Findings: Prominently air distended small bowel loops measuring up to 5 cm in dimension Contrast in the kidneys No free air Impression: Small bowel obstruction pattern
[2024-03-26] MEDS: POTASSIUM CHL 10 mEq IVPB 10 MEQ/100 ML BAG 100 MEQ IV ×3 (08:40→12:27)
--- NOTE | 2024-03-26 10:11 | XR_ITS ---
Examination: Small bowel series with KUB Exam date and time: March 26, 2024 1114 hrs. Indications: Abdominal distention this week, abdomen examination 03/26/2024 0806 hrs. Prominently air distended small bowel loops Technique And Findings: Patient received 120 cc Gastrografin through the orogastric tube Contrast present in the stomach Impression: Contrast present in the stomach Recommend follow-up abdomen films 12 noon, 1:00 PM, 2:00 PM
--- NOTE | 2024-03-26 10:55 | PC.SS ---
LETTER CARRIER conducted bedside contact with the patient conduct initial assessment and to discuss discharge planning. Patient confirmed demographic information. Patient resides at home with granddaughter, Nyasia Howell . Patient reports utilization of a walker to assist with ambulation. Patient utilizes home oxygen, 3L. [employer] is the vendor. Patient requires assistance with the completion of ADL?s. Patient?s granddaughter provides assistance to the patient. Patient confirmed granddaughter, Nyasia Howell; is the patient?s medical surrogate decision maker. Patient utilizes the [facility] for PCP services. Patient?s electrical test engineer is Dr. Caldwell. Patient is not diabetic and does not participate with dialysis. Patient utilizes [facility] for medication services. Patient will require follow up appointment with [facility] upon discharge. Family will provide transportation on behalf of the patient. If home health recommended at the time of discharge no preferred provider identified. No discharge needs identified by the patient. No further intervention required at this time, perinatal social worker will be available to address any further concerns. Next of Kin: Nyasia Howell D/C Plan: Home
--- NOTE | 2024-03-26 11:15 | PD.RESPRO ---
Documentation for date of: 03/26/24 Subjective Subjective Interval history: Patient was seen and examined at bedside this AM. No acute exents overnight. Patient NPO and mentation is at baseline. Patient endorses generalized abdominal pain, no further episodes of emesis. No stool, no flatus. NGT drainage - 1600 ml / 24hours Exam Vital Signs Temp Pulse Resp BP Pulse Ox O2 Del Method O2 Flow Rate 97.6 F 121 H 20 118/86 H 98 Room Air 2 03/26/24 07:39 03/26/24 07:39 03/26/24 07:39 03/26/24 07:39 03/26/24 07:39 03/26/24 07:39 03/25/24 14:12 Narrative Exam Constitutional Alert, oriented x 3 . Cachexia and temporal wasting HEENT Vision grossly intact. Patent nares. Trachea midline Respiratory Pacemaker noted on left and lungs clear to auscultation Cardiovascular S1 and S2 audible, RRR. No murmurs carotid bruit. No gross JVD. Abdominal Generalized tenderness to palpation in all quadrants. Absent BS Genitourinary No bladder tenderness, no flank pain. Normal to palpation Musculoskeletal Extremities tone within normal limits. No LE edema. Neurological CN II - XII grossly intact. Extremity motor and sensation grossly intact. Skin Warm, dry and intact. No apparent lesions. Psychiatric Patient has good affect, is cooperative Objective Labs 03/27/24 04:45 03/27/24 04:45 Labs: Laboratory Results - last 24 hr 03/26/24 04:58 WBC 17.0 H D RBC 4.09 Hgb 11.6 L Hct 36.0 MCV 88 MCH 28.4 MCHC 32.2 RDW Std Deviation 43.9 Plt Count 481 H Neut % (Auto) 86 H Lymph % (Auto) 9 L [place] % (Auto) 4 Eos % (Auto) 0 Baso % (Auto) 0 Neut # (Auto) 14.7 H Lymph # (Auto) 1.5 [place] # (Auto) 0.7 Eos # (Auto) 0.0 Baso # (Auto) 0.0 Immature Gran # (Auto) 0.09 H Absolute Nucleated RBC 0.00 Immature Gran % 1 H Nucleated RBC % 0 Sodium 135 L Potassium 2.9 L Chloride 87 L Carbon Dioxide > 40.0 H Anion Gap 8 BUN 37 H Creatinine 0.8 Estim Creat Clear Calc 39.2 L eGFR > 60 BUN/Creatinine Ratio 46 H Glucose 149 H Calculated Osmolality 281 Calcium 9.7 Corrected Calcium 10.0 Phosphorus 3.3 Magnesium 2.2 Total Bilirubin 0.3 AST 16 ALT < 7 L Alkaline Phosphatase 97 Total Protein 7.1 Albumin 3.6 Globulin 3.5 Albumin/Globulin Ratio 1.0 L Quality Measures Quality Measures none Advance care planning discussed with:: patient Assessment & Plan Assessment Current Active Medications: Generic Name Dose Route Start Last Admin Trade Name Freq PRN Reason Stop Dose Admin Acetaminophen 650 mg 03/25/24 15:25 Acetaminophen Supp 650 Mg Supp AR 04/24/24 14:58 Q6HR PRN Fever > 100.3 or pain 1-6 Albuterol/Ipratropium 3 ml 03/25/24 19:00 03/26/24 06:33 Albuterol/Ipratropium (Duoneb) Rt Bernadette 3 Ml Nebu INH 04/24/24 18:59 3 ml Q6HRRT HUYEN Administration Carvedilol 3.125 mg 03/25/24 17:30 03/26/24 08:39 Carvedilol 3.125 Mg Tablet PO 04/24/24 17:29 Not Given BIDWM HUYEN Gabapentin 300 mg 03/25/24 15:09 Gabapentin 300 Mg Capsule PO 04/24/24 15:14 TID PRN AGITATION Heparin Sodium (Porcine) 5,000 unit 03/25/24 15:15 03/26/24 05:23 Heparin Sod Inj 5000 Unit/Ml Vial SC 04/08/24 15:14 Not Given Q8HR HUYEN Dextrose/Sodium Chloride 1,000 mls @ 60 mls/hr 03/25/24 15:45 03/25/24 16:41 D5-Ns IV 60 mls/hr .[id number] HUYEN Administration Potassium Chloride 10 meq in 100 mls @ 100 mls/hr 03/26/24 11:00 03/26/24 10:03 Kcl Ivpb IV 03/26/24 12:59 100 mls/hr Q1H HUYEN Administration Methadone HCl 110 mg 03/26/24 09:00 03/26/24 08:40 Methadone Hcl 10 Mg Tablet PO 03/31/24 08:59 Not Given QDAY HUYEN Protocol Morphine Sulfate 2 mg 03/25/24 15:22 03/25/24 19:59 Morphine Sulf Inj 10 Mg/Ml Vial IVP 03/30/24 15:21 2 mg Q4HR PRN Administration PAIN SCALE 7-10 (Severe Ondansetron HCl 4 mg 03/25/24 15:04 Ondansetron Inj 2 Mg/Ml Inj 2 Ml IV 04/24/24 15:03 Q6H PRN NAUSEA OR VOMITING Protocol Plan Patient is a 74-year-old female with an extensive medical history including coronary artery disease, HFrEF 30-35%, s/p pacemaker 2018, COPD on 2 L home O2, squamous cell carcinoma of the lung [02/2024]. She presented today to the ED with multiple episodes of non-bilious vomiting overnight and absolute constipation. There was no associated hematemesis, and no flatus passed since yesterday. Of note patient is on methadone 110 mg p.o. daily for chronic lower back pain. On imaging, Adomen/pelvis CT : High-grade mechanical small bowel obstruction, consider Gastrografin small bowel series follow-up. General Surgery, Dr. Abdi was consulted and is closely following the case. Patient was admitted for the work-up and management of Small bowel Obstruction. 1. Small bowel obstruction?acute 2. Leukocytosis Presentation: Nonbilious vomiting and constipation, no flatus Exam: Absent bowel sounds and generalized tenderness to abdomen. Patient has history of abdominal surgery, hysterectomy. NG tube on suction drained 1600 mL of fluid overnight, no longer draining. Repeat x-ray showed no resolution of obstruction. Patient still constipated, no flatus. Etiology: Adhesions, methadone use On admission WBC 22.4 ---> [03/26] WBC 17 [03/25] A/P CT : High-grade mechanical small bowel obstruction [03/26] Abdomen x-ray : Prominently air distended small bowel loops measuring up to 5 cm in dimension. Small bowel obstruction pattern Plan: ? N.p.o. ? NGT Clamped ? Discontinued IVF D5/NS at 75 mL/hour ? Small bowel series with Gastrografin ordered - Repeat Abdomen Xray in 6 hours after gastrografin. ? General Surgery, Dr Abdi consulted. Appreciate recommendations 3.Hypokalemia?acute Most likely due to NG tube drainage [03/26] K: 2.9 Plan: ? KCl 40 mEq IV x 1 ? Then KCl 20 mEq IV x 1 ? Monitor CMP 4. Systolic congestive heart failure with reduced ejection fraction [30-35%] BNP [03/24] = 88 NYHA : Stage C , Class III Echo : [12/30] echocardiogram: Mild systolic dysfunction. Akinesis apical septal and lateral. Estimated EF 30-35%. Home diuretic : none Plan: - Daily weight - Input/output charting ? Carvedilol 3.125 mg p.o. twice daily 5. COPD?chronic 6. Metabolic Alkalosis - chronic Chronic metabolic alkalosis in setting of compensated COPD Patient is on 2 L home oxygen as baseline Home medication fluticasone/vilanterol 1 puff daily On admission : HCO3 > 40 Plan: ? O2 therapy as needed to maintain sats at 88-92% ? DuoNebs every 6 hourly as needed 7. Essential hypertension?chronic On admission BP 148/91 currently BP : 118/86 Home medication losartan 25 mg p.o. daily Plan: ? Home medication held for now as patient is n.p.o. for SBO ? To consider restarting home medication if SBP more than 160 8. Chronic lower back pain Home medication methadone 110 mg p.o. daily and gabapentin 300 mg p.o. 3 times daily as needed. Plan: ? Continue methadone 110 mg p.o. daily ? Continue gabapentin 300 mg p.o. 3 times daily as needed Health maintenance: Disposition: NGT clamped, Small bowel series with gastrografin Diet: NPO Lines: pIVs GI Prophylaxis: Ondansetron Thrombo Prophylaxis: Heparin Code status: DNR Plan of care discussed with attending Dr Nance and Dr. Ovalle PGY 2 Todd Najera MD PGY 1 Senior resident attestation: I discussed with and supervised the unpaid intern physician who took care of this patient. I personally saw and examined the patient and discussed the assessment and plan with the entire medicine team, including my attending Dr. Nance , I agree with the assessment and plan as documented above. Patient is a 74-year-old female, past medical history of coronary artery disease, ischemic and toxic cardiomyopathy, HFrEF 30 to 35%, status post pacemaker 2018, opioid use disorder, currently on methadone, COPD on 2 L home oxygen, squamous cell carcinoma of the lung, who presented to the ER due to intractable nausea and vomiting as well as constipation. Patient reported she was not able to pass gas all day, but did have a bowel movement yesterday. Small bowel obstruction: Initial imaging in the ER showed high-grade mechanical small bowel obstruction, distended fluid-filled stomach, small bowel distention and no air in rectum. General surgeon Dr. Abdi was consulted. Patient is kept n.p.o., started on IV fluids and nasogastric tube with continuous suction. Chest x-ray postprocedure showed NG tube in good position. Overnight 1600 mL aspirated via NG tube, after decompression of stomach, Gastrografin small bowel series ordered per general surgery recommendations. Radiology recommended getting delayed films as contrast seen and stomach and duodenum more than 2 hours postingestion Opiate abuse disorder: Patient currently on 110 mg methadone, reported she takes her methadone 4 AM every morning, but this morning when she took it she immediately vomited it out, we will resume patient's home dose of methadone daily. 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 Chart review shows patient was seen by Dr. Earl Strauss recently during hospital visit. EKG shows sinus tachycardia, no acute ischemic changes. Currently patient is clinically dry on examination. No evidence of volume overload. Patient was started on IV fluids, but discontinued during the day. COPD: Continue with DuoNebs Metabolic alkalosis: Likely secondary to continuous vomiting and loss of gastric contents. MD Vasquez PGY2 MD Vasquez PGY2 Attending Provider Attestation/Addendum Face to face evaluation was performed by me. I have personally seen and examined the patient. I discussed the assessment and plan with the entire medicine team. I reviewed available medical records, imaging studies, laboratory results. I agree with the above subjective data, objective findings, assessment and plan except as corrected by me or noted below Abdominal pain, periumbilical mainly Nausea and vomiting Pacemaker placement Hx of DM Hx of opioid dependance now on methadone Rx - HLD - IV Fluids, NPO obtain small bowel series consulted Dr Abdi surgery as well, i m concerned that her SBO is not resolving
--- NOTE | 2024-03-26 11:44 | PD.SURPROG ---
Documentation for date of: 03/26/24 Subjective Subjective Narrative: Patient is seen and examined. She has mild abdominal pain. She denies passing flatus or bowel movements Exam Vital Signs Temp Pulse Resp BP Pulse Ox O2 Del Method O2 Flow Rate 97.6 F 121 H 20 118/86 H 98 Room Air 2 03/26/24 07:39 03/26/24 07:39 03/26/24 07:39 03/26/24 07:39 03/26/24 07:39 03/26/24 07:39 03/25/24 14:12 Constitutional Constitutional: no acute distress Routine Abdominal Exam Comments: Abdomen is soft and mildly distended. No rebound tenderness or peritonitis at this time Assessment & Plan Plan Clamp NG tube and obtain small bowel series
--- NOTE | 2024-03-26 13:52 | PC.DIETICIAN ---
Nutrition recommendations: Patient is at significant risk for refeeding syndrome. Once diet is initiated, consider: 1. Thiamine 100mg/day for 7 days; provide first dose at least 30 minutes before starting nutrition. 2. Multivitamins/Minerals. 3. Daily labs for P, K, and Mg; replace as needed.
--- NOTE | 2024-03-26 16:07 | PC.SS ---
Rounding note: General Surgery, Dr. Abdi was consulted. Patient was admitted for work-up and management of small bowel obstruction.
--- NOTE | 2024-03-26 16:07 | PC.NURSE ---
patient is very agitated, restless. called hr.is 130's, called dr. cardoza and made aware.
--- NOTE | 2024-03-26 16:18 | PD.RESEVENT ---
Documentation for date of: 03/26/24 Event Note Event Note: Called by RN to assess patient for agitation. On assessment patient was A&O X 2 (person and place) and appeared to be in mild distress making grunting noises. But responds to direct questions Vitals were significant for HR 130 and SpO2 88% on RA. Her home medication is Methadone 110 mg po Qday. She is currently NPO for small bowel series, but can get medication. Methadone 110 mg liquid NG Qday ordered for withdrawal symptoms.
--- NOTE | 2024-03-26 16:38 | XR_ITS ---
Examination: AP chest single view Technique one AP portable semiupright chest single view Exam date and time: March 26, 2024 1712 hrs. Comparison March 25, 2024 Indications: COPD, post orogastric tube placement Findings: Severe hyperexpansion, COPD with bullous change at the right apex Orogastric tube satisfactory position, sidehole distal to the GE junction Normal heart size Cardiac leads stable position Impression: Orogastric tube satisfactory position
[2024-03-26] MEDS: DEXTROSE 5%-NS 1,000 ML 100 ML IV (17:14)
--- NOTE | 2024-03-26 17:32 | PC.NURSE ---
patient pulled out ngt part way. advance ngt , called dr. cardoza and made aware, cxr was ordered post procedure .awaiting for result, returned back methadone 110mg to pharmacy,gave methadone to chip pharmacist.
--- NOTE | 2024-03-26 18:02 | PC.NURSE ---
still wating for cxr result , unable to give methadone .methadone was returned to pharmacy,
[2024-03-26 19:25] LABS: Alanine Aminotransferase < 7 U/L (10-49); Albumin, Serum 3.5 gm/dL (3.4-4.8); Alkaline Phosphatase 91 U/L (46-116); Anion Gap 11 (7-16); Aspartate Amino Transferase 17 U/L (0-34); BUN/Creatinine Ratio 32 Ratio (12-20); Bilirubin,Total 0.3 mg/dL (0.3-1.2); Blood Urea Nitrogen 35 mg/dL (9-23); Calcium 9.6 mg/dL (8.3-10.6); Carbon Dioxide > 40.0 mMol/L (20.0-31.0); Chloride 86 mMol/L (98-107); Creatinine (Component) 1.1 mg/dL (0.6-1.3); Estimated Creatinine Clearance 28.5 mL/min (>60); Globulin 3.5 gm/dL (2.3-3.5); Glucose 151 mg/dL (74-106); Osmolality,Calculated 284 (275-295); Potassium 3.5 mMol/L (3.4-5.1); Sodium 137 mMol/L (136-145); eGFR 53 See Note
[2024-03-26] MEDS: METOCLOPRAMIDE INJ 5 MG/ML VIAL 2 ML 10 MG IVP (20:38)
[2024-03-26] MEDS: HEPARIN SOD INJ 5000 UNIT/ML VIAL SC (20:41)
[2024-03-26] MEDS: bisacodyL 10 MG SUPP PR (20:43)
--- NOTE | 2024-03-26 21:05 | PC.NURSE ---
MD Dr Kitchen, on floor asks about methadone order administration, Informed med not given for patients non-responsiveness. Per MD believes pt non-responsive because of withdrawals and wants methadone given. Methadone given per NG as ordered by .
[2024-03-26] MEDS: METHADONE SOLUTION 1 MG/1 ML 110 MG NG (21:10)
--- NOTE | 2024-03-26 22:15 | XR_ITS ---
Examination: Abdomen AP single view Technique: AP portable supine abdomen, single view Exam date and time: March 26, 2024 1004 hrs. Indications: Abdominal pain and distention this week and 11 hours delayed film post small bowel series today Findings: Contrast in stomach and dilated in small bowel loops Impression: Small bowel obstruction pattern Multiple additional delayed films will be obtained
[2024-03-27] VITALS (89 sets, daily range): BP systolic 68–163; BP diastolic 31–149; PULSE 92–138; RESP 5–99; TEMP 36–38.4; O2SAT 70–100
[2024-03-27] MEDS: METOCLOPRAMIDE INJ 5 MG/ML VIAL 2 ML 10 MG IVP ×2 (00:14→05:06)
--- NOTE | 2024-03-27 01:00 | XR_ITS ---
Examination: Abdomen AP single view Technique: AP portable supine abdomen, single view Exam date and time: March 27, 2024 0101 hrs. Indications: 14 hour delayed film post small bowel series yesterday, abdominal pain and distention this week Findings: Contrast primarily in the stomach and duodenum as well as proximal jejunum Prominently air distended small bowel loops noted Impression: Prominently air distended small bowel loops Additional delayed films will be obtained
[2024-03-27] MEDS: ALBUTEROL/IPRATROPIUM (Duoneb) RT SOL 3 ML NEBU INH ×2 (01:52→06:13)
[2024-03-27] MEDS: DEXTROSE 5%-NS 1,000 ML 100 ML IV (03:10)
--- NOTE | 2024-03-27 04:00 | XR_ITS ---
Examination: Abdomen AP single view Technique: AP portable supine abdomen, single view Exam date and time: March 27, 2024 0414 hrs. Indications: 17 hour delayed film post small bowel series yesterday, abdominal pain and distention this week Findings: Contrast in the duodenum and jejunal loops Prominently air distended small bowel loops Impression: Small bowel series is incomplete There are markedly air distended small bowel loops projecting in the pelvis
[2024-03-27] MEDS: SODIUM CHLORIDE 0.9% 500 ML 500 ML 999 ML IV (04:10)
[2024-03-27] MEDS: DiphenhydrAMINE INJ 50 MG/ML VIAL 12.5 MG IVP (04:10)
[2024-03-27 05:03] LABS: Basophils % (Auto) 0 % (0-2.5); Eosinophils # (Auto) 0.1 Thou/mm3 (0.0-0.5); Eosinophils % (Auto) 0 % (0-10); Hematocrit 37.2 % (36.0-46.0); Hemoglobin 11.8 g/dL (12.0-16.0); Immature Granulocytes % (Auto) 1 % (0-0); Lymphocytes # (Auto) 1.7 Thou/mm3 (1.0-4.8); Lymphocytes % (Auto) 8 % (10-50); Mean Corpuscular HGB Conc 31.7 g/dl (31.0-37.0); Mean Corpuscular Hemoglobin 28.7 pg (25.0-35.0); Mean Corpuscular Volume 91 fL (80-100); Monocytes # (Auto) 1.2 Thou/mm3 (0.0-0.8); Monocytes % (Auto) 6 % (0-12); Neutrophils # (Auto) 17.2 Thou/mm3 (1.8-7.7); Neutrophils % (Auto) 85 % (37-80); Nucleated Red Blood Cell % 0 /100 WBC (0); Platelet Count 338 Thou/mm3 (140-440); RDW Standard Deviation 45.6 fL (36.4-46.3); Red Blood Count 4.11 Miln/mm3 (4.00-5.20); White Blood Count 20.3 Thou/mm3 (3.6-11.0)
[2024-03-27 06:03] LABS: Alanine Aminotransferase < 7 U/L (10-49); Albumin, Serum 3.6 gm/dL (3.4-4.8); Albumin/Globulin Ratio 1.1 (1.2-2.2); Alkaline Phosphatase 93 U/L (46-116); Anion Gap 9 (7-16); Aspartate Amino Transferase 16 U/L (0-34); BUN/Creatinine Ratio 39 Ratio (12-20); Bilirubin,Total 0.3 mg/dL (0.3-1.2); Blood Urea Nitrogen 43 mg/dL (9-23); Calcium 9.4 mg/dL (8.3-10.6); Calcium (Corrected) 9.7 mg/dL (8.5-10.1); Carbon Dioxide > 40.0 mMol/L (20.0-31.0); Chloride 91 mMol/L (98-107); Creatinine (Component) 1.1 mg/dL (0.6-1.3); Estimated Creatinine Clearance 30.9 mL/min (>60); Globulin 3.2 gm/dL (2.3-3.5); Glucose 150 mg/dL (74-106); Magnesium 2.4 mg/dL (1.6-2.6); Osmolality,Calculated 293 (275-295); Phosphorous 3.1 mg/dL (2.4-5.1); Potassium 3.1 mMol/L (3.4-5.1); Sodium 140 mMol/L (136-145); Total Protein 6.8 gm/dL (5.7-8.2); eGFR 53 See Note
--- NOTE | 2024-03-27 07:00 | XR_ITS ---
Examination: Abdomen AP single view Technique: AP portable supine abdomen, single view Exam date and time: March 27, 2024 0657 hrs. Indications: 20 hour delayed film post small bowel series today, abdominal pain and distention this week Findings: Contrast is diluted in markedly dilated small bowel loops Impression: Small bowel obstruction pattern Recommend follow-up abdomen film 11:00 AM
[2024-03-27] MEDS: POTASSIUM CHL 10 mEq IVPB 10 MEQ/100 ML BAG 100 MEQ IV ×4 (08:07→14:47)
--- NOTE | 2024-03-27 08:57 | PD.SURPROG ---
Documentation for date of: 03/27/24 Subjective Subjective Narrative: Patient is seen and examined. She is complaining of worsening abdominal pain. She has not passed flatus or bowel movement yet. Small bowel series shows persistent high-grade small bowel obstruction Exam Vital Signs Temp Pulse Resp BP Pulse Ox O2 Del Method O2 Flow Rate 97.7 F 124 H 23 H 120/80 80 L Nasal Cannula 3 03/27/24 07:40 03/27/24 07:40 03/27/24 07:40 03/27/24 07:40 03/27/24 07:40 03/27/24 07:40 03/27/24 07:40 FiO2 91 03/26/24 09:00 Constitutional Constitutional: moderate distress Routine Abdominal Exam Comments: Abdomen is soft but distended, there are no bowel sounds and she has tenderness to palpation throughout the abdomen, there are no rebound tenderness or diffuse peritonitis Assessment & Plan Assessment Additional comments: Small bowel obstruction Plan Patient's clinical exam has worsened and small bowel series shows persistent bowel obstruction. Patient will be taken to the operating room for exploratory laparotomy, possible bowel resection. Risks include but not limited to infection, bleeding, injury to bowel, surround neurovascular structures, abdominal sepsis and or abdominal abscess, need for further procedure and or operation, pneumonia, blood clot, heart attack, stroke and discussed with the patient. Benefits and alternatives explained to her, all her questions answered, she agreed and consented to proceed with the operation. Patient is DNR status, however she does understand that during the operation she will require intubation for general anesthesia. During perioperative period should her clinical course deteriorate that she should require cardiopulmonary resuscitation her DNR status will be implemented.
[2024-03-27 09:13] LABS: INR 1.4 (0.9-1.3); Partial Thromboplastin Time 25.1 Seconds (22.0-36.0); Prothrombin Time 14.6 Seconds (9.0-12.2)
--- NOTE | 2024-03-27 09:27 | PD.EVENT ---
Documentation for date of: 03/27/24 Event Note Event Note: Patients SBO worsened, she is barely responsive now, Small bowel series shows obstructions. She now needs emergency procedure likely. Dr. Abdi is on board, and i discussed with him the case as well. we are trying to reach next of kin- there is a granddaughters number in chart- goes to voicemail. But his is now became emergency so without surgery she might . Her code status can be temporary changed to full code until after surgery- when i discussed with her goals of care- she did not want to have CPR if her heart stops in general but this was outside surgery, so code status will be changed to full code temporarily.
--- NOTE | 2024-03-27 10:33 | PD.ADDPROG ---
Addendum Progress Note Addendum Date of report being addended: 03/27/24 Narrative: Face to face evaluation was performed by me. I have personally seen and examined the patient. I discussed the assessment and plan with the entire medicine team. I reviewed available medical records, imaging studies, laboratory results. I agree with the above subjective data, objective findings, assessment and plan except as corrected by me or noted below Abdominal pain, periumbilical mainly Nausea and vomiting Pacemaker placement Hx of DM Hx of opioid dependance now on methadone Rx - HLD - IV Fluids, NPO discussed with Dr Abdi surgery as well, plan to take to OR for exp lap. She is not fully oriented to sign consent, we tried multiple times to reach out next of kin- emergency contact- left voicemail. This has became now emergency surgery need as without procedure she may . She might need to get intubated and admitted to the icu postoperatively.
--- NOTE | 2024-03-27 10:36 | ESPR_ITS ---
Documentation for date of: 03/27/24 Subjective Subjective Interval history: Patient was seen and examined at bedside this AM. No acute exents overnight. Patient NPO with NGT on suction. 400 ml output Patient altered mentation. A&O x 0 Patient still not passing flatus or stool. Small bowel series showed contrast still in jejunum. Patient counselled by Dr. Abdi and scheduled for surgery today Exam Vital Signs Temp Pulse Resp BP Pulse Ox O2 Del Method O2 Flow Rate 97.7 F 120 H 17 120/80 97 Nasal Cannula 4 03/27/24 07:40 03/27/24 09:00 03/27/24 09:00 03/27/24 07:40 03/27/24 09:00 03/27/24 07:40 03/27/24 09:00 FiO2 91 03/26/24 09:00 Narrative Exam Constitutional Alert, oriented x 3 . Cachexia and temporal wasting HEENT Vision grossly intact. Patent nares. Trachea midline Respiratory Pacemaker noted on left and lungs clear to auscultation Cardiovascular S1 and S2 audible, RRR. No murmurs carotid bruit. No gross JVD. Abdominal Generalized tenderness to palpation in all quadrants. Absent BS Genitourinary No bladder tenderness, no flank pain. Normal to palpation Musculoskeletal Extremities tone within normal limits. No LE edema. Neurological CN II - XII grossly intact. Extremity motor and sensation grossly intact. Skin Warm, dry and intact. No apparent lesions. Psychiatric Patient has good affect, is cooperative Objective Labs 03/27/24 04:45 03/27/24 04:45 Labs: Laboratory Results - last 24 hr 03/26/24 03/27/24 03/27/24 18:42 04:45 08:36 WBC 20.3 H RBC 4.11 Hgb 11.8 L Hct 37.2 MCV 91 MCH 28.7 MCHC 31.7 RDW Std Deviation 45.6 Plt Count 338 D Neut % (Auto) 85 H Lymph % (Auto) 8 L [place] % (Auto) 6 Eos % (Auto) 0 Baso % (Auto) 0 Neut # (Auto) 17.2 H Lymph # (Auto) 1.7 [place] # (Auto) 1.2 H Eos # (Auto) 0.1 Baso # (Auto) 0.0 Immature Gran # (Auto) 0.10 H Absolute Nucleated RBC 0.00 Immature Gran % 1 H Nucleated RBC % 0 PT 14.6 H INR 1.4 H APTT 25.1 Sodium 137 140 Potassium 3.5 D 3.1 L Chloride 86 L 91 L Carbon Dioxide > 40.0 H > 40.0 H Anion Gap 11 9 BUN 35 H 43 H Creatinine 1.1 1.1 Estim Creat Clear Calc 28.5 L 30.9 L eGFR 53 L 53 L BUN/Creatinine Ratio 32 H 39 H Glucose 151 H 150 H Calculated Osmolality 284 293 Calcium 9.6 9.4 Corrected Calcium 10.0 9.7 Phosphorus 3.1 Magnesium 2.4 Total Bilirubin 0.3 0.3 AST 17 16 ALT < 7 L < 7 L Alkaline Phosphatase 91 93 Total Protein 7.0 6.8 Albumin 3.5 3.6 Globulin 3.5 3.2 Albumin/Globulin Ratio 1.0 L 1.1 L Blood Type O Positive Antibody Screen NEGATIVE Blood Bank Wristband ID Yes Quality Measures Quality Measures none Advance care planning discussed with:: patient Assessment & Plan Assessment Current Active Medications: Generic Name Dose Route Start Last Admin Trade Name Freq PRN Reason Stop Dose Admin Acetaminophen 650 mg 03/25/24 15:25 Acetaminophen Supp 650 Mg Supp MA 04/24/24 14:58 Q6HR PRN Fever > 100.3 or pain 1-6 Albuterol/Ipratropium 3 ml 03/25/24 19:00 03/27/24 06:13 Albuterol/Ipratropium (Duoneb) Rt Bernadette 3 Ml Nebu INH 04/24/24 18:59 3 ml Q6HRRT HUYEN Administration Carvedilol 3.125 mg 03/25/24 17:30 03/27/24 08:49 Carvedilol 3.125 Mg Tablet PO 04/24/24 17:29 Not Given BIDWM HUYEN Gabapentin 300 mg 03/25/24 15:09 Gabapentin 300 Mg Capsule PO 04/24/24 15:14 TID PRN AGITATION Heparin Sodium (Porcine) 5,000 unit 03/25/24 15:15 03/27/24 05:10 Heparin Sod Inj 5000 Unit/Ml Vial SC 04/08/24 15:14 Not Given Q8HR HUYEN Dextrose/Sodium Chloride 1,000 mls @ 100 mls/hr 03/26/24 17:00 03/27/24 05:10 D5-Ns IV 04/25/24 16:59 100 mls/hr .Q10H HUYEN Infusion Potassium Chloride 10 meq in 100 mls @ 100 mls/hr 03/27/24 07:50 03/27/24 10:25 Kcl Ivpb IV 03/27/24 11:49 100 mls/hr Q1H HUYEN Administration Methadone HCl 110 mg 03/26/24 16:30 03/27/24 08:49 Methadone Solution 1 Mg/1 Ml NG 03/31/24 08:59 Not Given QDAY HUYEN Protocol Metoclopramide HCl 10 mg 03/26/24 20:15 03/27/24 05:06 Metoclopramide Inj 5 Mg/Ml Vial 2 Ml IVP 04/25/24 20:14 10 mg Q6HR HUYEN Administration Protocol Morphine Sulfate 2 mg 03/25/24 15:22 03/25/24 19:59 Morphine Sulf Inj 10 Mg/Ml Vial IVP 03/30/24 15:21 2 mg Q4HR PRN Administration PAIN SCALE 7-10 (Severe Ondansetron HCl 4 mg 03/25/24 15:04 Ondansetron Inj 2 Mg/Ml Inj 2 Ml IV 04/24/24 15:03 Q6H PRN NAUSEA OR VOMITING Protocol Plan Patient is a 74-year-old female with an extensive medical history including coronary artery disease, HFrEF 30-35%, s/p pacemaker 2018, COPD on 2 L home O2, squamous cell carcinoma of the lung [02/2024]. She presented today to the ED with multiple episodes of non-bilious vomiting overnight and absolute constipation. There was no associated hematemesis, and no flatus passed since yesterday. Of note patient is on methadone 110 mg p.o. daily for chronic lower back pain. On imaging, Adomen/pelvis CT : High-grade mechanical small bowel obstruction, consider Gastrografin small bowel series follow-up. General Surgery, Dr. Abdi was consulted and is closely following the case. Patient was admitted for the work-up and management of Small bowel Obstruction. 1. Small bowel obstruction?acute 2. Leukocytosis Presentation: Nonbilious vomiting and constipation, no flatus Exam: Absent bowel sounds and generalized tenderness to abdomen. Patient has history of abdominal surgery, hysterectomy. NG tube on suction drained 400 mL of fluid overnight Repeat x-ray showed no resolution of obstruction. Patient still constipated, no flatus. 24 hours post gastografin small bowel series Etiology: Adhesions, methadone use On admission WBC 22.4 ---> [03/27] WBC 20.3 [03/25] A/P CT : High-grade mechanical small bowel obstruction [03/26] Abdomen x-ray : Prominently air distended small bowel loops measuring up to 5 cm in dimension. Small bowel obstruction pattern [03/27] Abdomen x-ray : Contrast is diluted in markedly dilated small bowel loops. Small bowel obstruction pattern Plan: ? N.p.o. ? NGT Clamped ? IVF D5/NS at 100 mL/hour - PT/PTT/INR - Type and save - For exploratory laparotomy with possible small bowel resection by Dr. Trinidad candelario - Multiple attempts to reach patient's NOK via phone were unsuccessful - 2 Physician consent obtained as patient was not oriented to sign. - General Surgery, Dr. Abdi consulted and is closely following case. Appreciate recommendations 3.Hypokalemia?acute Most likely due to NG tube drainage [03/26] K: 2.9 ---> [03/27] K 3.1 Plan: ? KCl 40 mEq IV x given ? Monitor CMP 4. Systolic congestive heart failure with reduced ejection fraction [30-35%] BNP [03/24] = 88 NYHA : Stage C , Class III Echo : [12/30] echocardiogram: Mild systolic dysfunction. Akinesis apical septal and lateral. Estimated EF 30-35%. Home diuretic : none Plan: - Daily weight - Input/output charting ? Carvedilol 3.125 mg p.o. twice daily 5. COPD?chronic 6. Metabolic Alkalosis - chronic 7. Acute Metabolic encephalopathy Chronic metabolic alkalosis in setting of GI losses and compensated COPD Patient is on 2 L home oxygen as baseline Home medication fluticasone/vilanterol 1 puff daily On admission : HCO3 > 40 Patient not oriented. Grunts in response to questions Plan: ? O2 therapy as needed to maintain sats at 88-92% ? DuoNebs every 6 hourly as needed 8. Essential hypertension?chronic On admission BP 148/91 currently BP : 120/80 Home medication losartan 25 mg p.o. daily Plan: ? Home medication held for now as patient is n.p.o. for SBO ? To consider restarting home medication if SBP more than 160 9. Chronic lower back pain Home medication methadone 110 mg p.o. daily and gabapentin 300 mg p.o. 3 times daily as needed. Plan: ? Continue methadone 110 mg p.o. daily ? Continue gabapentin 300 mg p.o. 3 times daily as needed Health maintenance: Disposition: NGT on intermittent suction. For surgery today Diet: NPO Lines: pIVs GI Prophylaxis: Ondansetron Thrombo Prophylaxis: SCDs Code status: Full Code Plan of care discussed with attending Dr Nance and Dr. Ovalle PGY 2 Todd Najera MD PGY 1 Senior resident attestation: I discussed with and supervised the electrical engineering intern physician who took care of this patient. I personally saw and examined the patient and discussed the assessment and plan with the entire medicine team, including my attending Dr. Nance , I agree with the assessment and plan as documented above. Patient is a 74-year-old female, past medical history of coronary artery disease, ischemic and toxic cardiomyopathy, HFrEF 30 to 35%, status post pacemaker 2018, opioid use disorder, currently on methadone, COPD on 2 L home oxygen, squamous cell carcinoma of the lung, who presented to the ER due to intractable nausea and vomiting as well as constipation. Patient reported she was not able to pass gas all day, but did have a bowel movement yesterday. Small bowel obstruction s/p Small bowel resection: Initial imaging in the ER showed high-grade mechanical small bowel obstruction, distended fluid-filled stomach, small bowel distention and no air in rectum. General surgeon Dr. Abdi was consulted. Delayed gastrograffin study showed no contrast past small bowel, decision was made to proceed with Laparatomy, Pt was unable to give consent due to mental statu sand attempt to reach her decision maker were unsuccessful, physician consent was signed due to imminent risk of demise in case of no surgical management for Small bowel obstruction, and pt's code status was changed to Full code to allow for surgical procedure and intubation. Pt. transferred to ICU post op for further management. Opiate abuse disorder: Patient currently on 110 mg methadone, reported she takes her methadone 4 AM every morning, but this morning when she took it she immediately vomited it out, we will resume patient's home dose of methadone daily. HFrEF COPD Metabolic alkalosis: Likely secondary to continuous vomiting and loss of gastric contents. MD Vasquez PGY2 Attending Provider Attestation/Addendum Face to face evaluation was performed by me. I have personally seen and examined the patient. I discussed the assessment and plan with the entire medicine team. I reviewed available medical records, imaging studies, laboratory results. I agree with the above subjective data, objective findings, assessment and plan except as corrected by me or noted below
--- NOTE | 2024-03-27 11:13 | PC.SS ---
Update: Plan is for the patient under go surgery today. Dr. Abdi performing procedure.
--- NOTE | 2024-03-27 12:15 | PD.SUROPNT ---
Date of Procedure 03/27/24 Pre Op Diagnosis Small bowel obstruction Post Op Diagnosis Complete small bowel obstruction from an adhesive band Procedure Exploratory laparotomy, partial small bowel resection with anastomosis Findings Complete small bowel obstruction from adhesive band near mid jejunum. Proximal to the area of obstruction small bowel was significantly dilated, distally small bowel was decompressed. The area of obstruction was not viable, partial small bowel resection was performed Procedure Description Patient brought into the operating room in supine position. After administration of general tracheal anesthesia, patient's abdomen prepped and draped in standard surgical manner. A laparotomy incision was made from mid epigastrium, around into the right of umbilicus and just to below umbilicus. Dissection was deepened into soft tissue and anterior abdominal fascia was divided. Upon entering the abdominal cavity patient was noted to have dilated proximal small bowel. The small bowel was eviscerated, was run from ligament of Treitz up to mid jejunum where patient was noted to have a complete bowel obstruction from an adhesive band. Lysis of adhesions performed. Distal to the area of obstruction the small bowel was decompressed. The area of obstruction was not viable and partial small bowel resection was performed. Proximal and distal to the area of obstruction the small bowel was divided with SHANEKA stapling device. A [id number], functional end-to-end anastomosis was then created with SHANEKA stapling device and enterotomy sites were closed with running 2-0 Vicryl and reinforced with 3-0 silk sutures in Lembert fashion. The mesenteric defect was closed with interrupted [id number] sutures using 3-0 silk sutures. The remainder of the small bowel was inspected, no additional area of obstruction noted. There was no evidence of any nodules or lesions or lymphadenopathy noted. Abdomen and pelvis copiously and thoroughly washed and irrigated, all the fluids were suctioned and the suction fluid returned clear. Hemostasis was adequate and satisfactory. Anterior abdominal fascia was closed with running 0 PDS as well as interrupted sutures with #1 Vicryl. The wound was washed and skin was closed with ruby. Sterile dressings and abdominal binder applied. Patient has remained ventilated and transferred to intensive care unit. Instruments, needles and sponge counts were reported to be correct x 2. Anesthesia GETA Pathology / specimen Other (Partial mid jejunum) Estimated Blood Loss 20 Condition Critical Disposition ICU Surgeon Gabe Abdi MD Surgical Staff Operation Date: 03/27/24 11:00 Case Staff Anesthesiologist: Cash Dutta RN First Assistant: Camilo Schmitt
[2024-03-27] MEDS: RINGERS LACTATED 1000 ML 1,000 ML 999 ML IV ×2 (12:55→14:00)
--- NOTE | 2024-03-27 13:52 | XR_ITS ---
Examination: AP chest single view Technique one AP portable semiupright chest single view Exam date and time: March 27, 2024 1408 hrs. Comparison March 26, 2024 12:00 PM Indications: Inpatient with hypoxic respiratory failure, postintubation Findings: Severe COPD with bullous change at the right apex Normal heart size Orogastric tube in the stomach satisfactory position Tracheal tube tip 6 cm above analisa No interval pneumonia Severe osteopenia Cardiac leads satisfactory position Impression: Severe COPD Endotracheal tube tip 6 cm above analisa Orogastric tube satisfactory position
[2024-03-27 14:10] LABS: Base Excess 18 (-3-3); HCO3 41 mEq/L (20-26); Inspired Oxygen, FIO2 100 %; O2 Saturation 101 % (91-98); PCO2 45 mmHg (32.0-48.0); PO2 409 mmHg (83-108); pH, Arterial 7.57 (7.35-7.45)
[2024-03-27] MEDS: fentaNYL 2,500 MCG/250 ML BAG 2,500 MCG/250 ML BAG IV (14:10)
[2024-03-27 14:13] LABS: Allen Test Not Performed; Puncture Site Arterial Line
[2024-03-27] MEDS: Norepinephrine/D5W 8mg/250ml 8 MG/250 ML BAG 4.027 MG IV (14:15)
[2024-03-27 14:33] LABS: Lactate (Lactic Acid) 4.9 mMol/L (0.4-2.0)
[2024-03-27] MEDS: HYDROCORTISONE SOD SUCC INJ 100 MG VIAL IV (15:00)
[2024-03-27 15:44] LABS: Base Excess 21 (-3-3); HCO3 45 mEq/L (20-26); Inspired Oxygen, FIO2 60 %; O2 Saturation 101 % (91-98); PCO2 48 mmHg (32.0-48.0); PO2 238 mmHg (83-108); pH, Arterial 7.59 (7.35-7.45)
[2024-03-27 15:48] LABS: Allen Test Not Performed; Puncture Site Arterial Line
[2024-03-27] MEDS: VASOPRESSIN IN NS IVPB 20 UNIT/100 ML BAG 9 UNIT IV (16:05)
[2024-03-27 17:21] LABS: Reflex Lactate? Y
[2024-03-27] MEDS: POTASSIUM CHL 20 mEq IVPB 20 MEQ/100 ML BAG 50 MEQ IV ×3 (17:23→22:19)
[2024-03-27] MEDS: CEFOXITIN IV ×2 (17:23→23:21)
[2024-03-27] MEDS: SODIUM CHLORIDE 0.9% IV ×2 (17:23→23:21)
[2024-03-27] MEDS: HYDROCORTISONE SOD SUCC INJ 100 MG VIAL 50 MG IV ×2 (17:24→23:21)
--- NOTE | 2024-03-27 17:41 | ESCONSULT_ITS ---
<Statement entered by Vy Olmstead MD - 03/28/24 13:43> TOTAL CC TIME: 45 MIN I saw and evaluated the patient. I reviewed the resident?s note and agree with findings and plan as documented in the resident?s note. Upon my evaluation, this patient had a high probability of imminent or life- threatening deterioration due to acute kidney injury, hypoxic respiratory failure, severe emphysema which required my direct attention, intervention, and personal management. This time is exclusive of time spent on procedures, which are documented separately if performed. 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 Patient was found to have high-grade mechanical small bowel obstruction on CT abdomen pelvis. Patient was admitted on floors for management of small bowel obstruction with NG tube placement. KUB series showed persistent high-grade small bowel obstruction Therefore,general surgery was consulted and patient underwent partial small bowel resection today on 03/27. Patient is upgraded to ICU for further postoperative management given hypotensive req pressors and intubated. Patient has been on NG tube intermittent suctioning with an output of 3 L during surgery and since afternoon 12:00 NG tube output is 600 cc. Patient was seen and examined at the bedside. She is frail-appearing female with bitemporal wasting. Pt is awake and mildly responsive to pain. Her abdomen is covered with surgical dressing. Patient has been hypotensive as low as in 50-60s postsurgery and received 1.2 L bolus of LR. Bedside ultrasound showed IVC was non collapsable and pt was not found fluid responsive. Therefore we started Levophed and later vasopressin. In addition, Stress dose steroids hydrocortisone 100 mg x 1 was given. steroids/hydrocortisone 50 mg every 6 hourly is scheduled to maintain the MAP above 65. will continue with pressors to increase perfusion and maintaining MAP above 65. Continue with intubation and mechanical ventilation due to at risk extubation given underlying hx of severe COPD and emphysematous lungs. Will keep her on with fentanyl for analgesia and sedation. Continuing ventilator AC VC mode with tidal volume 350, respiratory rate 12, FiO2 40%. Recent ABGs revealed metabolic alkalosis not compensatory therefore respiratory rate was reduced to allow permissive hypercapnia. Repeated blood labs including CBC and CMP and trending lactic acid.Postop, Lactic acid came at 4.9. We will continue with IV antibiotic therapy with cefoxitin Q6 hourly for surgical prophylaxis for abdominal infection post bowel resection. Repleting electrolytes as necessary. IV 20 mEq potassium given x 1 for Potassium 3.1.Cont to Monitor strict ELIZABETH's for prerenal DEVON and oliguria. Continue to monitor for pain and fever spikes. Patient's granddaughter was updated regarding patient's critical condition and she wished to continue with CODE STATUS: Full code and will come tomorrow morning for further discussion. -- I saw and examined the patient, and I agree with current management stated by Dr Alan DO ,PGY1. Plan of care was discussed with the attending physician and resident physician. Disclaimer: Despite multiple revisions, due to the dictation software being used, the document bellow may not be free of grammatical errors including phonetic/typographic errors. However, this does not deter from our commitment to providing health care in the patient's best interest in mind. Dr. 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 ED workup showed BP 148/91, HR 109, RR 16, temp 98, SpO2 [address] abdominal pelvis showed high-grade mechanical small bowel obstruction. EKG sinus tachycardia. Patient was admitted for small bowel obstruction with NG tube placement. Small bowel series showed high-grade obstruction. She underwent partial small bowel resection with general surgery, Dr Abdi on 03/27. PMH: As mentioned above in addition to CAD, PTSD, depression, hyperlipidemia PSH: Left hip replacement, hysterectomy MEDICATIONS: METHADONE 110 mg daily, CARVEDILOL, LOSARTAN, ALBUTEROL inhaler, FLUTICASONE inhaler, IPRATROPIUM/ALBUTEROL inhaler, ATORVASTATIN, CLONAZEPAM, DULOXETINE, GABAPENTIN, METOCLOPRAMIDE, PROMETHAZINE. ALLERGIES: No known allergies cc:: cc: Cm Nance MD Review of Systems Review of Systems ROS Unobtainable: due to endotracheal tube Past Medical History Surgical History OTHER SURGICAL HX: Hysterectomy, left hip hemiarthroplasty, pacemaker implantation Social History SMOKING STATUS: Former smoker (Recently quit smoking) SUBSTANCE USE: marijuana ALCOHOL: Former Exam Vital Signs Temp Pulse Resp BP Pulse Ox O2 Del Method O2 Flow Rate 97.9 F 128 H 14 88/60 L 78 L Nasal Cannula 4 03/27/24 16:15 03/27/24 16:45 03/27/24 13:01 03/27/24 15:30 03/27/24 16:15 03/27/24 07:40 03/27/24 09:00 FiO2 45 03/27/24 16:00 Narrative Exam GENERAL: Fragile, cachectic 71-year-old woman. Appropriately sedated. HEENT: Normocephalic/atraumatic. Bilateral pupils dilated, sluggishly reactive to light. ET tube and NG tube in place. Eyes maintains an open position. NECK: Supple, nontender, no thyromegaly, no meningismus, no JVD, no step offs CHEST: Symmetrical, equal expansion, nontender. Central line in place. CARDIOVASCULAR: Tachycardic, regular rhythm, S1/S2 present, no m/g/r LUNGS: CTAB, no w/r/r. Symmetrical chest rise. No intercostal subcostal retraction. ABDOMEN: Soft, flat, nontender. No guarding/rebound tenderness/masses. +BS. Mid incision scar without signs of bleeding or infection. EXTREMITIES: Nontender.?No edema/cyanosis.?Moves all 4 extremities well, with full ROM and good CSM. SKIN: Cool and dry, no jaundice/rashes. MUSCULOSKELETAL: No lumbar or midline, no CVA, no paraspinal muscle spasm or tenderness. NEUROPSYCH: Appropriately sedated with FENTANYL, RASS 0 Results Labs 03/27/24 17:50 03/27/24 17:50 Labs: Short CBC 03/27/24 Range/Units 04:45 WBC 20.3 H (3.6-11.0) Thou/mm3 Hgb 11.8 L (12.0-16.0) g/dL Hct 37.2 (36.0-46.0) % Plt Count 338 D (140-440) Thou/mm3 BMP 03/26/24 03/27/24 18:42 04:45 Sodium 137 140 Potassium 3.5 D 3.1 L Chloride 86 L 91 L Carbon Dioxide > 40.0 H > 40.0 H BUN 35 H 43 H Creatinine 1.1 1.1 Glucose 151 H 150 H Calcium 9.6 9.4 Liver Function 03/26/24 03/27/24 Range/Units 18:42 04:45 Total Bilirubin 0.3 0.3 (0.3-1.2) mg/dL AST 17 16 (0-34) U/L ALT < 7 L < 7 L (10-49) U/L Alkaline Phosphatase 91 93 (46-116) U/L Albumin 3.5 3.6 (3.4-4.8) gm/dL ABG Interpretation ABG results: 03/27/24 03/27/24 13:56 15:32 ABG pH 7.57 H 7.59 H ABG pCO2 45 48 ABG pO2 409 H 238 H D ABG HCO3 41 H 45 H ABG O2 Saturation 101 H 101 H ABG Base Excess 18 H 21 H Quality Measures Quality Measures VTE prophylaxis (HEPARIN subcu) Advance care planning discussed with:: significant other Medications Home Medications and Allergies Home Medications ?Medication ?Instructions ?Recorded ?Confirmed ?Type methadone 10 mg tablet 110 mg PO QDAY 06/11/23 03/25/24 History omeprazole 40 mg capsule,delayed 40 mg PO DAILY 03/25/24 03/25/24 History release Allergies Allergy/AdvReac Type Severity Reaction Status Date / Time No Known Allergies Allergy Verified 03/25/24 09:17 Visit Medications Heparin Sodium (Porcine) (Heparin Sod Inj 5000 Unit/Ml Vial) 5,000 unit SC Q8HR HUYEN Stop: 04/10/24 17:44 Hydrocortisone Sodium Succinate (Hydrocortisone Sod Succ Inj 100 Mg Vial) 50 mg IV Q6HR HUYEN Stop: 04/26/24 17:59 Last Admin: 03/27/24 17:24 Dose: 50 mg Norepinephrine/Dextrose (Levophed In D5w 8mg/250ml) 8 mg in 250 mls @ 4.027 mls/hr IV .Q24H PRN; Protocol PRN Reason: PER PROTOCOL Stop: 04/26/24 12:48 Last Titration: 03/27/24 17:13 Dose: 0.32 mcg/kg/min, 25.773 mls/hr Cefoxitin Sodium 1 gm/ Sodium (Chloride) 50 mls @ 100 mls/hr IV Q6HR HUYEN Stop: 04/03/24 17:59 Last Admin: 03/27/24 17:23 Dose: 100 mls/hr Fentanyl Citrate (Sublimaze Inj 2,500 Mcg/250 Ml Bag) 2,500 mcg in 250 mls @ 2.5 mls/hr IV .Q24H PRN; Protocol PRN Reason: PER PROTOCOL Stop: 04/01/24 13:58 Last Titration: 03/27/24 17:00 Dose: 225 mcg/hr, 22.5 mls/hr Vasopressin/Sodium Chloride (Vasostrict/Ns Ivpb) 20 unit in 100 mls @ 9 mls/hr IV .Q11H7M PRN; Protocol PRN Reason: PER PROTOCOL Stop: 04/26/24 15:58 Last Titration: 03/27/24 17:00 Dose: 0.03 unit/min, 9 mls/hr Potassium Chloride (Kcl Ivpb) 20 meq in 100 mls @ 50 mls/hr IV X1 ONE Stop: 03/27/24 18:49 Last Admin: 03/27/24 17:23 Dose: 50 mls/hr Discontinued Medications Acetaminophen (Acetaminophen Supp 650 Mg Supp) 650 mg NH Q6HR PRN PRN Reason: Fever > 100.3 or pain Stop: 04/24/24 14:58 Acetaminophen (Acetaminophen Supp 650 Mg Supp) 650 mg NH Q6HR PRN PRN Reason: Fever > 100.3 or pain 1-6 Stop: 04/24/24 14:58 Albuterol/Ipratropium (Albuterol/Ipratropium (Duoneb) Rt Bernadette 3 Ml Nebu) 3 ml INH Q6HRRT HUYEN Stop: 04/24/24 18:59 Last Admin: 03/27/24 12:42 Dose: Not Given Bisacodyl (Bisacodyl 10 Mg Supp) 10 mg NH X1 ONE; Protocol Stop: 03/26/24 20:08 Last Admin: 03/26/24 20:43 Dose: 10 mg Carvedilol (Carvedilol 3.125 Mg Tablet) 3.125 mg PO BIDWM HUYEN Stop: 04/24/24 17:29 Last Admin: 03/27/24 08:49 Dose: Not Given Diphenhydramine HCl (Diphenhydramine Inj 50 Mg/Ml Vial) 12.5 mg IV Q2HR PRN PRN Reason: ITCHING Stop: 04/26/24 03:58 Diphenhydramine HCl (Diphenhydramine Inj 50 Mg/Ml Vial) 12.5 mg IVP X1 STA Stop: 03/27/24 04:05 Last Admin: 03/27/24 04:10 Dose: 12.5 mg Gabapentin (Gabapentin 300 Mg Capsule) 300 mg PO TID PRN PRN Reason: AGITATION Stop: 04/24/24 15:14 Heparin Sodium (Porcine) (Heparin Sod Inj 5000 Unit/Ml Vial) 5,000 unit SC Q8HR HUYEN Stop: 04/08/24 15:14 Last Admin: 03/27/24 05:10 Dose: Not Given Hydrocortisone Sodium Succinate (Hydrocortisone Sod Succ Inj 100 Mg Vial) 100 mg IV X1 ONE Stop: 03/27/24 14:46 Last Admin: 03/27/24 15:00 Dose: 100 mg Sodium Chloride (Ns) 1,000 mls @ 500 mls/hr IV .Q2H ONE Stop: 03/25/24 11:46 Last Infusion: 03/25/24 12:40 Dose: Infused Sodium Chloride (Ns) 1,000 mls @ 90 mls/hr IV .Q11H7M ONE Stop: 03/26/24 01:54 Potassium Chloride (Kcl Ivpb) 10 meq in 100 mls @ 100 mls/hr IV Q1H STA Stop: 03/25/24 15:48 Last Infusion: 03/25/24 22:01 Dose: Infused Sodium Chloride (Ns) 1,000 mls @ 50 mls/hr IV .Q20H HUYEN Stop: 04/24/24 14:59 Dextrose/Sodium Chloride (D5-Ns) 1,000 mls @ 75 mls/hr IV .[id number] HUYEN Stop: 03/26/24 18:24 Dextrose/Sodium Chloride (D5-Ns) 1,000 mls @ 60 mls/hr IV .[id number] [facility] Last Admin: 03/25/24 16:41 Dose: 60 mls/hr Potassium Chloride (Kcl Ivpb) 10 meq in 100 mls @ 100 mls/hr IV X1 ONE Stop: 03/25/24 20:33 Last Infusion: 03/25/24 22:01 Dose: Infused Potassium Chloride (Kcl Ivpb) 10 meq in 100 mls @ 100 mls/hr IV X1 ONE Stop: 03/26/24 09:01 Last Admin: 03/26/24 08:40 Dose: 100 mls/hr Potassium Chloride (Kcl Ivpb) 10 meq in 100 mls @ 100 mls/hr IV Q1H [facility] Stop: 03/26/24 12:59 Last Admin: 03/26/24 12:27 Dose: 100 mls/hr Dextrose/Sodium Chloride (D5-Ns) 1,000 mls @ 100 mls/hr IV .Q10H [facility] Stop: 04/25/24 16:59 Last Admin: 03/27/24 17:05 Dose: Not Given Sodium Chloride (Ns) 500 mls @ 999 mls/hr IV .Q31M ONE Stop: 03/27/24 04:30 Last Admin: 03/27/24 04:10 Dose: 999 mls/hr Potassium Chloride (Kcl Ivpb) 10 meq in 100 mls @ 100 mls/hr IV Q1H [facility] Stop: 03/27/24 11:49 Last Infusion: 03/27/24 16:20 Dose: Infused Lactated Ringer's (Lactated Ringers) 1,000 mls @ 999 mls/hr IV .Q1H1M ONE Stop: 03/27/24 13:48 Last Infusion: 03/27/24 14:00 Dose: Infused Lactated Ringer's (Lactated Ringers) 1,000 mls @ 999 mls/hr IV .Q1H1M ONE Stop: 03/27/24 13:49 Last Infusion: 03/27/24 14:10 Dose: 0 mls/hr Lidocaine HCl (Lidocaine Jelly 2% (Urojet) 10 Ml Tube) 10 ml TOP X1 STA Stop: 03/25/24 14:48 Last Admin: 03/25/24 15:55 Dose: 10 ml Lorazepam (Lorazepam 2 Mg/Ml Vial) 0.5 mg IVP STAT ONE Stop: 03/25/24 15:41 Last Admin: 03/25/24 16:40 Dose: Not Given Methadone HCl (Methadone Hcl 10 Mg Tablet) 110 mg PO QDAY HUYEN; Protocol Stop: 03/31/24 08:59 Last Admin: 03/26/24 08:40 Dose: Not Given Methadone HCl (Methadone Solution 1 Mg/1 Ml) 110 mg NG QDAY HUYEN; Protocol Stop: 03/31/24 08:59 Last Admin: 03/27/24 08:49 Dose: Not Given Metoclopramide HCl (Metoclopramide Inj 5 Mg/Ml Vial 2 Ml) 10 mg IVP Q6HR HUYEN; Protocol Stop: 04/25/24 20:14 Last Admin: 03/27/24 17:04 Dose: Not Given Morphine Sulfate (Morphine Sulf Inj 10 Mg/Ml Vial) 4 mg IVP X1 ONE Stop: 03/25/24 12:01 Last Admin: 03/25/24 13:03 Dose: 4 mg Morphine Sulfate (Morphine Sulf Inj 10 Mg/Ml Vial) 2 mg IVP Q4HR PRN PRN Reason: PAIN SCALE 7-10 (Severe Stop: 03/30/24 15:21 Last Admin: 03/25/24 19:59 Dose: 2 mg Ondansetron HCl (Ondansetron Inj 2 Mg/Ml Inj 2 Ml) 4 mg IV X1 ONE; Protocol Stop: 03/25/24 12:01 Last Admin: 03/25/24 13:04 Dose: 4 mg Ondansetron HCl (Ondansetron Inj 2 Mg/Ml Inj 2 Ml) 4 mg IV Q6H PRN; Protocol PRN Reason: NAUSEA OR VOMITING Stop: 04/24/24 15:03 Assessment & Plan Plan This is a 74-year-old female with PMH of severe COPD on 2.5 L oxygen, HFrEF EF 30-35%, dilated cardiomyopathy, arrhythmia s/p pacemaker, recently diagnosed SCC of lung (03/01), anxiety, and chronic lumbago with dependence on METHADONE 100 mg daily, POD 0 small bowel resection 2/2 high-grade bowel obstruction. Patient admitted to ICU for postop management given hypotension and intubated. # Acute encephalopathy # Opiate dependence, on METHADONE - Patient underwent bowel Sx today under GA Intubated and sedated on fentanyl baseline mental status AOx3 #History of anxiety ? Patient sedated on FENTANYL CVS # Shock DDx: distributive Patient required VASOPRESSIN and PHENYLEPHRINE perioperatively Unresponsive to fluid Currently requiring LEVOPHED and VASOPRESSIN, MAP 60?65 ? Continue with LEVOPHED and VASOPRESSIN, goal MAP >65 ? Given HYDROCORTISONE 100 mg x 1 ? Started HYDROCORTISONE 50 mg q.6h. # Lactic acidosis In settings of shock Lactic acid 4.9 ? Repeat lactic acid tomorrow ? Continue pressors # HFrEF EF 30-35% # Hx of dilated cardiomyopathy # Hx of Takotsubo cardiomyopathy History of, last echo done 12/08/2023 showed EF 30 to 35% ? Holding home CARVEDILOL, patient hypotensive # Hx of arrhythmia, unspecified History of arrhythmia, s/p pacemaker Currently sinus rhythm ? Continue to monitor # Hx of essential hypertension Patient currently hypotensive ? Continue holding home LOSARTAN and CARVEDILOL PULMONARY # At-risk extubation # Chronic severe COPD POD 0, patient high risk for immediate extubation 2/[address] demonstrated extensive COPD and emphysematous changes Vent settings: A/C, VT 350, FIO2 40% Currently intubated mechanical ventilation ABG: pH 7.59, pCO2 48, bicarb 45, pO2 230 Satting 100% on 40% FiO2 ? Continue mechanical ventilation ? Continue STEROIDS as above ? Goal oxygenation: 88 to 92% # Recently diagnosed SCC of lung Diagnosed on recent admission from February 2024 Unclear if patient is following oncology outpatient ? Outpatient management once stable RENAL # Oliguria In settings of shock Urine output average 15 cc an hour ? Continue with pressors ? Monitor renal function # Primary metabolic alkalosis Likely secondary to GI loss Not well compensated ABG: pH 7.59, pCO2 48, bicarb 45, pO2 230 ? Allowing permissive hypercapnia # Prerenal DEVON In setting of sepsis CR 1.1, baseline 0.8 ? Continue with pressors ? Strict ELIZABETH's ? Avoid nephrotoxic # Hypokalemia Potassium 3.1 ? Given 20 mEq KCl ? Daily CMP GI # Small bowel obstruction # S/p small bowel resection on 03/27 Dr. Abdi is following NG tube clamped Patient n.p.o. ? Follow-up on perioperative course and general surgery recommendations ? Pain control ? Monitor for pain and fever spikes HEME-ONC # Leukocytosis Likely reactive 2/2 SBO and abdominal surgery ? Daily CBC MUSCULOSKELETAL # Chronic low back pain # Opiate dependency on METHADONE Continued on FENTANYL ID Postsurgical prophylaxis ? CEFOXITIN 1g q.6 hours (03/27 to [present]) Health maintenance Diet: NPO GI prophylaxis: PROTONIX DVT prophylaxis: HEPARIN subcu Antibiotics: CEFOXITIN [03/27 to preset] Catheter: Tristan Tubes: ET tube, NG tube, subclavian central line,arterial line CODE STATUS: Full code Disposition: Postop, upgraded to ICU Patient case was discussed with attending, Dr. Aysha MD, and senior resident Dr. Heard. Ajay Phillips DO Patient Accounts Coordinator
--- NOTE | 2024-03-27 18:08 | XR_ITS ---
Examination: AP chest single view Technique: AP portable semiupright chest single view Exam date and time: March 27, 2024 1811 hrs. Comparison 03/25/2024, 03/27/2024 1408 hrs. Indications: Post subclavian central line placement Findings: Right subclavian central line tip SVC satisfactory position No pneumothorax Severe COPD Cardiac leads stable position Normal heart size Orogastric tube poorly visualized tracheal tube is not well visualized, approximately 4 cm above analisa Impression: Right subclavian central line tip SVC satisfactory position, no pneumothorax
[2024-03-27 18:17] LABS: Lactic Acid, 3 HR 4.7 mMol/L (0.4-2.0)
[2024-03-27 18:22] LABS: Basophils # (Auto) 0.1 Thou/mm3 (0.0-0.2); Basophils % (Auto) 0 % (0-2.5); Eosinophils # (Auto) 0.1 Thou/mm3 (0.0-0.5); Eosinophils % (Auto) 0 % (0-10); Hematocrit 32.7 % (36.0-46.0); Hemoglobin 10.6 g/dL (12.0-16.0); Immature Granulocytes % (Auto) 1 % (0-0); Immature Granulocytes Auto 0.17 Thou/mm3 (0.00-0.00); Lymphocytes % (Auto) 4 % (10-50); Mean Corpuscular HGB Conc 32.4 g/dl (31.0-37.0); Mean Corpuscular Hemoglobin 28.8 pg (25.0-35.0); Mean Corpuscular Volume 89 fL (80-100); Monocytes # (Auto) 0.6 Thou/mm3 (0.0-0.8); Monocytes % (Auto) 2 % (0-12); Neutrophils % (Auto) 92 % (37-80); Nucleated Red Blood Cell % 0 /100 WBC (0); Platelet Count 298 Thou/mm3 (140-440); RDW Standard Deviation 45.6 fL (36.4-46.3); Red Blood Count 3.68 Miln/mm3 (4.00-5.20)
[2024-03-27] MEDS: ACETAMINOPHEN SUPP 650 MG SUPP PR (18:30)
[2024-03-27] MEDS: HEPARIN SOD INJ 5000 UNIT/ML VIAL SC (18:31)
[2024-03-27 19:00] LABS: Alanine Aminotransferase < 7 U/L (10-49); Albumin, Serum 2.4 gm/dL (3.4-4.8); Albumin/Globulin Ratio 1.1 (1.2-2.2); Alkaline Phosphatase 67 U/L (46-116); Anion Gap 5 (7-16); Aspartate Amino Transferase 15 U/L (0-34); BUN/Creatinine Ratio 34 Ratio (12-20); Bilirubin,Total 0.5 mg/dL (0.3-1.2); Blood Urea Nitrogen 41 mg/dL (9-23); Calcium 8.1 mg/dL (8.3-10.6); Calcium (Corrected) 9.4 mg/dL (8.5-10.1); Carbon Dioxide 38.4 mMol/L (20.0-31.0); Chloride 100 mMol/L (98-107); Creatinine (Component) 1.2 mg/dL (0.6-1.3); Estimated Creatinine Clearance 28.3 mL/min (>60); Globulin 2.2 gm/dL (2.3-3.5); Glucose 121 mg/dL (74-106); Osmolality,Calculated 296 (275-295); Potassium 2.8 mMol/L (3.4-5.1); Sodium 143 mMol/L (136-145); Total Protein 4.6 gm/dL (5.7-8.2); eGFR 48 See Note
[2024-03-27 19:17] LABS: Base Excess 20 (-3-3); HCO3 45 mEq/L (20-26); Inspired Oxygen, FIO2 40 %; O2 Saturation 100 % (91-98); PCO2 50 mmHg (32.0-48.0); PO2 147 mmHg (83-108); pH, Arterial 7.56 (7.35-7.45)
[2024-03-27 19:26] LABS: Allen Test Not Performed; Puncture Site Arterial Line
[2024-03-27] MEDS: fentaNYL 2,500 MCG/250 ML BAG 2,500 MCG/250 ML BAG 30 MCG IV (23:57)
[2024-03-28] VITALS (90 sets, daily range): BP systolic 40–287; BP diastolic 28–281; PULSE 67–119; RESP 0–64; TEMP 36.4–37.7; O2SAT 66–100; BMI 13.5
[2024-03-28] MEDS: VASOPRESSIN IN NS IVPB 20 UNIT/100 ML BAG 9 UNIT IV ×2 (00:46→13:08)
[2024-03-28 01:59] LABS: Anion Gap 22 (7-16); BUN/Creatinine Ratio 27 Ratio (12-20); Blood Urea Nitrogen 48 mg/dL (9-23); Calcium 8.8 mg/dL (8.3-10.6); Calcium (Corrected) 9.6 mg/dL (8.5-10.1); Carbon Dioxide 26.9 mMol/L (20.0-31.0); Chloride 97 mMol/L (98-107); Creatinine (Component) 1.8 mg/dL (0.6-1.3); Estimated Creatinine Clearance 18.9 mL/min (>60); Glucose 100 mg/dL (74-106); Osmolality,Calculated 303 (275-295); Phosphorous 4.6 mg/dL (2.4-5.1); Potassium 5.3 mMol/L (3.4-5.1); Sodium 146 mMol/L (136-145); eGFR 29 See Note
[2024-03-28] MEDS: Norepinephrine/D5W 8mg/250ml 8 MG/250 ML BAG 20.941 MG IV (02:03)
--- NOTE | 2024-03-28 03:55 | PC.RT ---
Pt going into apneic events. Tried sternal rub and loud voice commands but pt not responding. Returned pt to previous volume control mode. Informed nursing and dr Pedraza.
[2024-03-28] MEDS: LORazepam 2 MG/ML VIAL 0.5 MG IVP (03:57)
[2024-03-28] MEDS: SODIUM CHLORIDE 0.9% 1000 ML 1,000 ML 999 ML IV (04:55)
[2024-03-28 05:05] LABS: Basophils # (Auto) 0.1 Thou/mm3 (0.0-0.2); Basophils % (Auto) 0 % (0-2.5); Eosinophils % (Auto) 0 % (0-10); Hematocrit 32.7 % (36.0-46.0); Hemoglobin 9.7 g/dL (12.0-16.0); Immature Granulocytes % (Auto) 3 % (0-0); Immature Granulocytes Auto 0.68 Thou/mm3 (0.00-0.00); Lymphocytes # (Auto) 2.6 Thou/mm3 (1.0-4.8); Lymphocytes % (Auto) 10 % (10-50); Mean Corpuscular HGB Conc 29.7 g/dl (31.0-37.0); Mean Corpuscular Hemoglobin 28.6 pg (25.0-35.0); Mean Corpuscular Volume 97 fL (80-100); Monocytes # (Auto) 0.4 Thou/mm3 (0.0-0.8); Monocytes % (Auto) 2 % (0-12); Neutrophils % (Auto) 86 % (37-80); Nucleated Red Blood Cell % 0 /100 WBC (0); Platelet Count 197 Thou/mm3 (140-440); RDW Standard Deviation 50.6 fL (36.4-46.3); Red Blood Count 3.39 Miln/mm3 (4.00-5.20); White Blood Count 25.8 Thou/mm3 (3.6-11.0)
[2024-03-28 06:11] LABS: Alanine Aminotransferase 155 U/L (10-49); Albumin, Serum 2.5 gm/dL (3.4-4.8); Albumin/Globulin Ratio 1.1 (1.2-2.2); Alkaline Phosphatase 93 U/L (46-116); Anion Gap 29 (7-16); Aspartate Amino Transferase 407 U/L (0-34); BUN/Creatinine Ratio 24 Ratio (12-20); Blood Urea Nitrogen 51 mg/dL (9-23); Calcium 8.4 mg/dL (8.3-10.6); Calcium (Corrected) 9.6 mg/dL (8.5-10.1); Carbon Dioxide 17.8 mMol/L (20.0-31.0); Chloride 96 mMol/L (98-107); Creatinine (Component) 2.1 mg/dL (0.6-1.3); Estimated Creatinine Clearance 16.2 mL/min (>60); Globulin 2.3 gm/dL (2.3-3.5); Magnesium 2.5 mg/dL (1.6-2.6); Osmolality,Calculated 295 (275-295); Phosphorous 8.2 mg/dL (2.4-5.1); Sodium 143 mMol/L (136-145); Total Protein 4.8 gm/dL (5.7-8.2); eGFR 24 See Note
[2024-03-28 06:14] LABS: Glucose 45 mg/dL (74-106); Potassium 6.5 mMol/L (3.4-5.1)
[2024-03-28] MEDS: DEXTROSE 50%-WATER INJ 50 ML SYRINGE IV ×3 (06:20→15:30)
[2024-03-28] MEDS: HYDROCORTISONE SOD SUCC INJ 100 MG VIAL 50 MG IV ×2 (06:28→11:55)
[2024-03-28] MEDS: CALCIUM GLUCONATE 10% INJ 1 GM/10 ML VIAL IV (06:28)
[2024-03-28] MEDS: CEFOXITIN IV ×2 (06:37→11:55)
[2024-03-28] MEDS: SODIUM CHLORIDE 0.9% IV ×2 (06:37→11:55)
[2024-03-28] MEDS: INSULIN HUM REGULAR 1 UNIT/0.01 ML (PER UNIT) 5 UNIT IV (06:44)
[2024-03-28] MEDS: HEPARIN SOD INJ 5000 UNIT/ML VIAL SC ×2 (06:45→13:08)
[2024-03-28 08:45] LABS: Potassium 4.5 mMol/L (3.4-5.1)
--- NOTE | 2024-03-28 09:14 | EKG_ITS ---
[facility] Test Date: 2024-03-28 Pat Name: ELKE LEA Department: Room: 54A Gender: Female Broadcast Supervisor: IRINA : [id number] Requested By: Tierney Clark Order Number: [id number] Reading MD: Tierney Clark Measurements Intervals [place] Rate: 101 P: 42 AR: 99 QRS: 3 QRSD: 117 T: 0 QT: 344 QTc: 446 Interpretive Statements SINUS TACHYCARDIA WITH SHORT AR INTERVAL WITH FREQUENT SUPRAVENTRICULAR PREMATURE COMPLEXES LOW QRS VOLTAGE PATTERN CONSISTENT WITH PULMONARY DISEASE MODERATE INTRAVENTRICULAR CONDUCTION DELAY MODERATE T-WAVE ABNORMALITY, CONSIDER ANTEROLATERAL ISCHEMIA Compared to ECG 03/25/2024 10:06:08 Low QRS voltage now present Intraventricular conduction delay now present Left-axis deviation no longer present Incomplete right bundle-branch block no longer present T-wave abnormality still present Possible ischemia still present /store/S0/[id number]/ecg/[id number].pdf
[2024-03-28] MEDS: Norepinephrine/D5W 8mg/250ml 8 MG/250 ML BAG 36.243 MG IV (09:16)
[2024-03-28 09:31] LABS: Base Excess -3 (-3-3); HCO3 22 mEq/L (20-26); Inspired Oxygen, FIO2 45 %; O2 Saturation 100 % (91-98); PCO2 35 mmHg (32.0-48.0); PO2 269 mmHg (83-108)
[2024-03-28 09:32] LABS: Allen Test Not Performed; Puncture Site Arterial Line
--- NOTE | 2024-03-28 09:36 | XR_ITS ---
Examination: AP chest single view Technique: AP portable semiupright chest single view Exam date and time: March 28, 2024 at 0950 hrs. Comparison March 27, 2024 Indications: Inpatient with COPD, hypoxic respiratory failure postintubation Findings: COPD with prominent hyperexpansion Stable parenchymal disease right apex with bullous change Endotracheal tube tip 7.9 cm above analisa Orogastric tube in the stomach satisfactory position Normal heart size Stable position cardiac leads Skin folds left hemithorax Right subclavian central line tip SVC No pneumothorax Impression: COPD with prominent hyperexpansion Endotracheal tube tip 7.9 cm above analisa Orogastric tube in stomach satisfactory position Right subclavian central line tip satisfactory position
--- NOTE | 2024-03-28 09:43 | ECHO_ITS ---
Transthoracic Echo Report Ht (in): 68 Wt (lb): 91 Exam Location: Portable Status: Inpatient [place] Operator: Karina Botello Indications: Procedure Performed: BP: 141 / 61 HR: 102 Technical Quality: Very technically difficult study MEASUREMENTS (Male / Female) Normal Values M-MODE LV Diastolic Diameter MM 3.1 cm 4.2 - 5.9 / 3.9 - 5.3 cm LV Systolic Diameter MM 2.3 cm LV Ejection Fraction MM Teich 56.5 % LV Cardiac Index MM Teich 1643.0 cm?/min?m? IVS Diastolic Thickness MM 0.7 cm 0.6 - 1.0 / 0.6 - 0.9 cm LVPW Diastolic Thickness MM 0.8 cm 0.6 - 1.0 / 0.6 - 0.9 cm LV Relative Wall Thickness MM 0.5 0.24 - 0.42 / 0.22 - 0.42 LV Mass Index MM 42.2 g/m? 49 - 115 / 43 - 95 g/m? FINDINGS Left Ventricle Normal left ventricular size, wall thickness, systolic function with no obvious regional wall motion abnormalities The ejection fraction is visually estimated at 55-60 %. Right Ventricle The right ventricle not well visualized. Left Atrium The left atrium is normal by two-dimensional, color flow and Doppler imaging with no structural abnormalities, no thrombus formation present. Right Atrium Right atrium is not well visualized. Atrial Septum The interatrial septum appears normal with no evidence of a shunt. Mitral Valve The mitral valve is normal by two-dimensional, color flow and Doppler interrogation. There is trace mitral valve regurgitation. Aortic Valve The aortic valve is trileaflet and normal by two-dimensional, color flow and Doppler interrogation. There is no significant aortic valve regurgitation. Tricuspid Valve The tricuspid valve is normal by two-dimensional, color flow and Doppler interrogation. There is no significant tricuspid valve regurgitation. Pulmonic Valve The pulmonic valve is not well visualized. There is no significant pulmonic valve regurgitation. Vessels The pulmonary artery appears normal. The inferior vena cava pulmonary and hepatic veins appear dede l. Pericardium The pericardium is normal by two-dimensional imaging. There is no significant pericardial effusion. CONCLUSIONS Suboptimal images due to body habitus. Normal LV size and function. Estimated EF 55-60% RV,RA, Pulmonay valve, and aortic valve not well visualized. Trace MR. Pacing wire present. Nallathambmeghan Thayapran (Electronically Signed) Final Date: 31 March 2024 10:31
--- NOTE | 2024-03-28 10:28 | PC.CM ---
Patient is opened to [facility] health. Patient will need home health orders at discharge is she returns home.
--- NOTE | 2024-03-28 11:35 | CHAP ---
Patient was visited by the Spiritual Care Volunteer who prayed for them. (Volunteer was in the hospital from 10:30 - 11:35)
--- NOTE | 2024-03-28 12:07 | EVENTNT_ITS ---
<Statement entered by Vy Olmstead MD - 03/28/24 13:44> I saw and evaluated the patient. I reviewed the resident?s note and agree with findings and plan as documented in the resident?s note. Patient's medical decision makers the granddaughter. Clinical update was provided at bedside. Goals of care were reviewed CODE STATUS of DNR was requested, limitations of care include hemodialysis. Documentation for date of: 03/28/24 Event Note Event Note: A discussion was had with granddaughter, La, at bedside. Family agrees on changing the patient's CODE STATUS to DNR. The utility aircrewman team will honor the family's wishes. Patient case was discussed with attending, Dr. Aysha MD, and senior resident Dr. Heard. Ajay Phillips DO Special Machine Operator
--- NOTE | 2024-03-28 12:07 | PD.RESEVENT ---
Documentation for date of: 03/28/24 Event Note Event Note: A discussion was had with granddaughter, La, at bedside. Family agrees on changing the patient's CODE STATUS to DNR. The information technology project manager team will honor the family's wishes. Patient case was discussed with attending, Dr. Aysha MD, and senior resident Dr. Heard. Ajay Phillips DO Food Mixer Repairer
[2024-03-28] MEDS: DEXTROSE 50%-WATER INJ 50 ML SYRINGE 25 ML IV (12:15)
[2024-03-28] MEDS: fentaNYL 2,500 MCG/250 ML BAG 2,500 MCG/250 ML BAG 25 MCG IV (12:32)
[2024-03-28] MEDS: PIPER/TAZO 3.375 GM 3.375 GM/50 ML BAG IV (12:39)
[2024-03-28] MEDS: DEXTROSE 10%-WATER 1000 ML 1,000 ML 20 ML IV (15:52)
--- NOTE | 2024-03-28 15:52 | ESPR_ITS ---
<Statement entered by Vy Olmstead MD - 04/03/24 16:57> TOTAL CC TIME: 45 MIN I saw and evaluated the patient. I reviewed the resident?s note and agree with findings and plan as documented in the resident?s note. Upon my evaluation, this patient had a high probability of imminent or life- threatening deterioration due to septic shock which required my direct attention, intervention, and personal management. This time is exclusive of time spent on procedures, which are documented separately if performed. Pt with refractory distributive shock - no evid of severe RV enlargement (limted echo windows) - IVC wnl and pt without evid of volume depletion/hemorrhage and PE unlikely based off our own bedside ICU ECHO. Given rising WBC and vasodilated physiology - septic shock most likely cause - and bacterial enteric translocation is possible. 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 Patient was found to have high-grade mechanical small bowel obstruction on CT abdomen pelvis. Patient was admitted on floors for management of small bowel obstruction with NG tube placement. KUB series showed persistent high-grade small bowel obstruction Therefore,general surgery was consulted and patient underwent partial small bowel resection today on 03/27. Patient was upgraded to ICU for postoperative management given septic shock and acute hypoxic respiratory failure intubated given underlying history of SCC lung and severe COPD. 03/27: We continue with sedation with fentanyl and pressor support with Levophed and vasopressin. Continue with NG tube with intermittent suctioning. Continued on IV cefoxitin. Stress dose steroids were started as well. Plan was to continue with intubation and mechanical ventilation. Ventilation settings were adjusted to allow permissive hypercapnia. Repleting electrolytes as necessary. IV 20 mEq potassium given x 1 for Potassium 3.1.Cont to Monitor strict ELIZABETH's for prerenal DEVON and oliguria. Continue to monitor for pain and fever spikes. Patient's granddaughter was updated regarding patient's critical condition and she wished to continue with CODE STATUS: Full code and will come tomorrow morning for further discussion. 03/28: Patient overnight was severely hypotensive and cardiac pads were placed given full CODE STATUS and granddaughter was unreachable at that point of time at night dose of pressors were increased and patient did not coded. In the morning, patient continued to remain hypotensive with hemodynamic instability despite maximum dose of multiple pressors. She had declining/worsening kidney functions with progression of her shock, undifferentiated and goals of care discussion occurred in the presence of ICU scow hand, RN and ICU residents. Granddaughter changed CODE STATUS to DNR and per plan wish to continue active management however patient declined by the course of day and she was called at the bedside. She was explained that patient is declining given her hemodynamic compromise and irreversible shock state. Patient's granddaughter wished to proceed with comfort care measures. ICU team ordered patient's granddaughter wishes. Currently on comfort care measures. ICU attending and general surgeon were updated. -- I saw and examined the patient, and I agree with current management stated by Dr Alan DO ,PGY1. Plan of care was discussed with the attending physician and resident physician. Disclaimer: Despite multiple revisions, due to the dictation software being used, the document bellow may not be free of grammatical errors including phonetic/typographic errors. However, this does not deter from our commitment to providing health care in the patient's best interest in mind. Dr. 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 Patient was found to have high-grade mechanical small bowel obstruction on CT abdomen pelvis. Patient was admitted on floors for management of small bowel obstruction with NG tube placement. KUB series showed persistent high-grade small bowel obstruction Therefore,general surgery was consulted and patient underwent partial small bowel resection today on 03/27. Patient is upgraded to ICU for further postoperative management given hypotensive req pressors and intubated. Patient has been on NG tube intermittent suctioning with an output of 3 L during surgery and since afternoon 12:00 NG tube output is 600 cc. Patient was seen and examined at the bedside. She is frail-appearing female with bitemporal wasting. Pt is awake and mildly responsive to pain. Her abdomen is covered with surgical dressing. Patient has been hypotensive as low as in 50-60s postsurgery and received 1.2 L bolus of LR. Bedside ultrasound showed IVC was non collapsable and pt was not found fluid responsive. Therefore we started Levophed and later vasopressin. In addition, Stress dose steroids hydrocortisone 100 mg x 1 was given. steroids/hydrocortisone 50 mg every 6 hourly is scheduled to maintain the MAP above 65. will continue with pressors to increase perfusion and maintaining MAP above 65. Continue with intubation and mechanical ventilation due to at risk extubation given underlying hx of severe COPD and emphysematous lungs. Will keep her on with fentanyl for analgesia and sedation. Continuing ventilator AC VC mode with tidal volume 350, respiratory rate 12, FiO2 40%. Recent ABGs revealed metabolic alkalosis not compensatory therefore respiratory rate was reduced to allow permissive hypercapnia. Repeated blood labs including CBC and CMP and trending lactic acid.Postop, Lactic acid came at 4.9. We will continue with IV antibiotic therapy with cefoxitin Q6 hourly for surgical prophylaxis for abdominal infection post bowel resection. Repleting electrolytes as necessary. IV 20 mEq potassium given x 1 for Potassium 3.1.Cont to Monitor strict ELIZABETH's for prerenal DEVON and oliguria. Continue to monitor for pain and fever spikes. Patient's granddaughter was updated regarding patient's critical condition and she wished to continue with CODE STATUS: Full code and will come tomorrow morning for further discussion. 03/28: Worsening hemodynamics and an adequate MAP despite being maxed out on multiple pressors. Worsening renal function, anuria, multiple electrolyte abnormalities despite adequate treatment resuscitation. Discussion was had with family at bedside. Family decided to proceed with comfort measures. The ICU team will honor the family's wishes. Exam Vital Signs Temp Pulse Resp BP Pulse Ox O2 Del Method O2 Flow Rate 98.4 F 105 H 12 149/65 H 92 L Mechanical Ventilation 4 03/28/24 12:00 03/28/24 14:17 03/28/24 09:00 03/28/24 13:46 03/28/24 14:02 03/28/24 06:15 03/27/24 09:00 FiO2 60 03/28/24 13:46 Narrative Exam GENERAL: Fragile, cachectic 71-year-old woman. Appropriately sedated. HEENT: Normocephalic/atraumatic. Bilateral pupils dilated, sluggishly reactive to light. Extubated. Eyes maintains an open position. NECK: Supple, nontender, no thyromegaly, no meningismus, no JVD, no step offs CHEST: Symmetrical, equal expansion, nontender. Central line in place. CARDIOVASCULAR: Tachycardic, regular rhythm, S1/S2 present, no m/g/r LUNGS: CTAB, no w/r/r. Symmetrical chest rise. No intercostal subcostal retraction. ABDOMEN: Soft, flat, nontender. No guarding/rebound tenderness/masses. +BS. Mid incision scar without signs of bleeding or infection. EXTREMITIES: Nontender.?No edema/cyanosis.?Moves all 4 extremities well, with full ROM and good CSM. SKIN: Cool and dry, no jaundice/rashes. MUSCULOSKELETAL: No lumbar or midline, no CVA, no paraspinal muscle spasm or tenderness. NEUROPSYCH: Appropriately sedated with FENTANYL Objective Labs 03/28/24 04:52 03/28/24 08:15 Labs: Laboratory Results - last 24 hr 03/27/24 03/27/24 03/28/24 17:50 19:00 00:50 WBC 25.0 H RBC 3.68 L Hgb 10.6 L Hct 32.7 L MCV 89 MCH 28.8 MCHC 32.4 RDW Std Deviation 45.6 Plt Count 298 D Neut % (Auto) 92 H Lymph % (Auto) 4 L [place] % (Auto) 2 Eos % (Auto) 0 Baso % (Auto) 0 Neut # (Auto) 23.0 H Lymph # (Auto) 1.0 [place] # (Auto) 0.6 Eos # (Auto) 0.1 Baso # (Auto) 0.1 Immature Gran # (Auto) 0.17 H Absolute Nucleated RBC 0.00 Immature Gran % 1 H Nucleated RBC % 0 Puncture Site Arterial Line ABG pH 7.56 H ABG pCO2 50 H ABG pO2 147 H D ABG HCO3 45 H ABG O2 Saturation 100 H ABG Base Excess 20 H FiO2 40 Sodium 143 146 H Potassium 2.8 L 5.3 H D Chloride 100 97 L Carbon Dioxide 38.4 H 26.9 Anion Gap 5 L 22 H BUN 41 H 48 H Creatinine 1.2 1.8 H D Estim Creat Clear Calc 28.3 L 18.9 L eGFR 48 L 29 L BUN/Creatinine Ratio 34 H 27 H Glucose 121 H 100 Calculated Osmolality 296 H 303 H Lactic Acid 4.7 H* Calcium 8.1 L 8.8 Corrected Calcium 9.4 9.6 Phosphorus 4.6 Magnesium Total Bilirubin 0.5 AST 15 ALT < 7 L Alkaline Phosphatase 67 D Troponin I Total Protein 4.6 L Albumin 2.4 L D 3.0 L D Globulin 2.2 L Albumin/Globulin Ratio 1.1 L 03/28/24 03/28/24 03/28/24 04:52 08:15 09:25 WBC 25.8 H RBC 3.39 L Hgb 9.7 L Hct 32.7 L MCV 97 MCH 28.6 MCHC 29.7 L RDW Std Deviation 50.6 H Plt Count 197 D Neut % (Auto) 86 H Lymph % (Auto) 10 [place] % (Auto) 2 Eos % (Auto) 0 Baso % (Auto) 0 Neut # (Auto) 22.0 H Lymph # (Auto) 2.6 [place] # (Auto) 0.4 Eos # (Auto) 0.0 Baso # (Auto) 0.1 Immature Gran # (Auto) 0.68 H Absolute Nucleated RBC 0.00 Immature Gran % 3 H Nucleated RBC % 0 Puncture Site Arterial Line ABG pH 7.40 D ABG pCO2 35 D ABG pO2 269 H D ABG HCO3 22 ABG O2 Saturation 100 H ABG Base Excess -3 FiO2 45 Sodium 143 Potassium 6.5 H* D 4.5 D Chloride 96 L Carbon Dioxide 17.8 L Anion Gap 29 H BUN 51 H Creatinine 2.1 H Estim Creat Clear Calc 16.2 L eGFR 24 L BUN/Creatinine Ratio 24 H Glucose 45 L* D Calculated Osmolality 295 Lactic Acid Calcium 8.4 Corrected Calcium 9.6 Phosphorus 8.2 H Magnesium 2.5 Total Bilirubin 1.0 D AST 407 H ALT 155 H Alkaline Phosphatase 93 D Troponin I 0.090 H* Total Protein 4.8 L Albumin 2.5 L D Globulin 2.3 Albumin/Globulin Ratio 1.1 L ABG Interpretation ABG results: 03/27/24 03/27/24 03/27/24 13:56 15:32 19:00 ABG pH 7.57 H 7.59 H 7.56 H ABG pCO2 45 48 50 H ABG pO2 409 H 238 H D 147 H D ABG HCO3 41 H 45 H 45 H ABG O2 Saturation 101 H 101 H 100 H ABG Base Excess 18 H 21 H 20 H 03/28/24 09:25 ABG pH 7.40 D ABG pCO2 35 D ABG pO2 269 H D ABG HCO3 22 ABG O2 Saturation 100 H ABG Base Excess -3 Quality Measures Quality Measures VTE prophylaxis (HEPARIN subcu) Advance care planning discussed with:: other (Granddaughter) Assessment & Plan Assessment Current Active Medications: Generic Name Dose Route Start Last Admin Trade Name Freq PRN Reason Stop Dose Admin Artificial Tears 1 drop 03/27/24 18:05 Artificial Tears 225 Drop/15 Ml Btl BOTH EYES 04/26/24 18:04 PRN PRN TO KEEP EYES MOIST Dextrose 25 ml 03/28/24 12:07 03/28/24 12:15 Dextrose 50%-Water Inj 50 Ml Syringe IV 04/27/24 12:06 25 ml Q15MIN PRN Administration BG 50-70 responsive npo pt Dextrose 50 ml 03/28/24 12:07 03/28/24 15:30 Dextrose 50%-Water Inj 50 Ml Syringe IV 04/27/24 12:06 50 ml Q15MIN PRN Administration BG <50 OR BG <70 & pt unresponsive Glucagon 1 mg 03/28/24 12:07 Glucagon Inj 1 Mg Vial IM Q15MIN PRN BG <70, and no IV access Heparin Sodium (Porcine) 5,000 unit 03/27/24 17:45 03/28/24 13:08 Heparin Sod Inj 5000 Unit/Ml Vial SC 04/10/24 17:44 5,000 unit Q8HR HUYEN Administration Hydrocortisone Sodium Succinate 50 mg 03/27/24 18:00 03/28/24 11:55 Hydrocortisone Sod Succ Inj 100 Mg Vial IV 04/26/24 17:59 50 mg Q6HR HUYEN Administration Norepinephrine/Dextrose 8 mg in 250 mls @ 4.027 mls/hr 03/27/24 12:49 03/28/24 13:55 Levophed In D5w 8mg/250ml IV 04/26/24 12:48 0.41 mcg/kg/min .Q24H PRN 33.022 mls/hr PER PROTOCOL Titration Protocol 0.05 MCG/KG/MIN Fentanyl Citrate 2,500 mcg in 250 mls @ 2.5 mls/hr 03/27/24 13:59 03/28/24 12:32 Sublimaze Inj 2,500 Mcg/250 Ml Bag IV 04/01/24 13:58 250 mcg/hr .Q24H PRN 25 mls/hr PER PROTOCOL Administration Protocol 25 MCG/HR Vasopressin/Sodium Chloride 20 unit in 100 mls @ 9 mls/hr 03/27/24 15:59 03/28/24 13:08 Vasostrict/Ns Ivpb IV 04/26/24 15:58 0.03 unit/min .Q11H7M PRN 9 mls/hr PER PROTOCOL Administration Protocol 0.03 UNIT/MIN Piperacillin/Tazobactam/Dextrose 3.375 gm in 50 mls @ 12.5 mls/hr 03/28/24 21:00 Zosyn IV 04/04/24 20:59 Q12HR HUYEN Dextrose 1,000 mls @ 20 mls/hr 03/28/24 15:50 03/28/24 15:52 D10w 1000 Ml IV 03/29/24 15:49 20 mls/hr .Q24H HUYEN Administration Plan This is a 74-year-old female with PMH of severe COPD on 2.5 L oxygen, HFrEF EF 30-35%, dilated cardiomyopathy, arrhythmia s/p pacemaker, recently diagnosed SCC of lung (03/01), anxiety, and 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 Patient admitted to ICU for postop management given hypotension and intubated. Unfortunately, patient continued to decline, unresponsive to current management. She remained with low MAP despite maxing out on multiple pressors. Patient remains severe distress despite maximum FENTANYL. Discussion was had with family at bedside, granddaughter Jannet, who decided to withdraw further management and proceed with comfort measure. # Comfort care # Acute encephalopathy # Opiate dependence, on METHADONE # History of anxiety # Undifferentiated shock # Lactic acidosis # HFrEF EF 30-35% # Hx of dilated cardiomyopathy # Hx of Takotsubo cardiomyopathy # Hx of arrhythmia, unspecified # Hx of essential hypertension # Acute hypoxic respiratory failure # Recently diagnosed SCC of lung # DEVON # Anuria # Primary metabolic alkalosis ? improving # Hypokalemia # Small bowel obstruction # S/p small bowel resection on 03/27 # Leukocytosis # Chronic low back pain # Opiate dependency on METHADONE Patient case was discussed with attending, Dr. Aysha MD, and senior resident Dr. Heard. Ajay Phillips, DO Tank Wagon Driver
--- NOTE | 2024-03-28 16:14 | PC.SS ---
Update: Midwife met with patient's granddaughter, Nyasia Howell; to provide update and prognosis on patient. Following review of treatment plan patient's granddaughter has transitioned the patient to DNR status.
[2024-03-28] MEDS: Norepinephrine/D5W 8mg/250ml 8 MG/250 ML BAG 48.324 MG IV (16:38)
--- NOTE | 2024-03-28 16:58 | EVENTNT_ITS ---
<Statement entered by Vy Olmstead MD - 04/03/24 16:57> TOTAL TIME: 45MINUTES ON DIRECT MEDICAL CARE, MANAGEMENT - COORDINATION AND COUNSELING > 50% OF TOTAL TIME I saw and evaluated the patient. I reviewed the resident?s note and agree with findings and plan as documented in the resident?s note. Documentation for date of: 03/28/24 Event Note Event Note: Event note for comfort care measures The ICU team including senior resident, Dr. Heard and Dr. Clark and RN spoke with granddaughter, Jannet, at bedside in regards to patient declining blood pressure despite giving her maximum dose of Levophed and patient appears to be in severe distress. Her granddaughter wished to proceed with comfort measures. The ICU team will honor family's wishes. ICU attending, and general surgeon, Dr Abdi was updated. -- Patient was discussed with ICU attending, and resident physician, Dr. Heard, PGY 2 Ajay Phillips Process Improvement Analyst
[2024-03-28] MEDS: fentaNYL CIT INJ 50 mCg/ML AMP 2ML 250 MCG IVP (17:36)
[2024-03-28] MEDS: SCOPOLAMINE 1 MG TDSY TOP (17:36)
[2024-03-28] MEDS: LORazepam 2 MG/ML VIAL IVP (17:38)
--- NOTE | 2024-03-28 17:43 | PC.NURSE ---
Patient made comfort care at 1653 after MD Heard and MD Phillips had goals of care meeting with the patient POC [place]. Donor network contacted at [phone], OPA # [phone]. Was advised by Yelena from Donor [facility] to call back with [facility] for possible tissue donation. Pt is R/O for organ donation, ok to continue with comfort measures and extubate patient
--- NOTE | 2024-03-28 20:07 | PD.DPN ---
Documentation for date of: 03/28/24 Pronouncement Note Date and Time of Date of : 03/28/24 Time of : 20:02 PCOD Preliminary cause of : Cardiopulmonary arrest Contributing Factors (1) Intestinal adhesions [bands], unspecified as to partial versus complete obstruction: Summary Additional details: Our team was called to pronounce the of patient Emma Burt. After receiving sign-out from the day ICU team, night team was made aware that patient was under comfort care measures, with code status DNR. Upon examination at bedside, no active heart or breath sounds were noted after 1 minute of continuous auscultation. Pupils were unresponsive to light or touch, corneal reflexes absent. No peripheral pulses were palpable. Patient was pronounced on 03/28/2024 at time 20:02. Attending physician Dr. Carter was notified. Patient's family was consoled. Patient case discussed with attending physician Dr. Raul Corey, PGY-3 Additional Data Confirmation of : no pulse, no respirations, no heart sounds and pupils fixed and dilated Family: at bedside Attending/PCP notified?: Yes Attending physician: Kevin Carter MD Was code activated?: No (Patient was comfort care, DNR code status)
--- NOTE | 2024-03-28 20:30 | DES_ITS ---
<Statement entered by Vy Olmstead MD - 04/03/24 16:58> TOTAL TIME: 45MINUTES ON DIRECT MEDICAL CARE, MANAGEMENT - COORDINATION AND COUNSELING > 50% OF TOTAL TIME I saw and evaluated the patient. I reviewed the resident?s note and agree with findings and plan as documented in the resident?s note. Documentation for date of: 03/28/24 Summary Date and Time Date of admission: 03/25/24 15:00 Date of : 03/28/24 Time of : 20:02 Summary Details: Night Senior ICU resident (PGY3),Dr Corey pronounced her at 20:02 on 03/28/24, with family present. Examination on bedside showed no active heart or breath sounds were noted after 1 minute of continuous auscultation. Pupils were unresponsive to light or touch, corneal reflexes absent. No peripheral pulses were palpable. Attending physician Dr. Carter was notified. Patient's family was consoled.Condolences were offered. Hospital Course: This 74-year-old female with a medical history of severe COPD on 2.5 L of oxygen, heart failure with reduced ejection fraction (EF 30-35%), dilated cardiomyopathy, and a pacemaker, was admitted to the ED on 03/25 due to absolute constipation and non-bilious vomiting. A CT scan revealed a high-grade mechanical small bowel obstruction. She was admitted for management, and an NG tube was placed with intermittent suctioning to decompress stomach. A KUB series showed persistent obstruction, prompting a surgical consult. She underwent a par tial small bowel resection on 03/27 due to ischemic bowel observed during surgery.Postoperatively, she was moved to the ICU for management of hypotension and continuing intubation due to AHRF in underlying setting of recently diagnosed SCC lung and hx of severe COPD.Unfortunately, she developed undifferentiated shock possible septic and was started on levophed and vasopressin. Continued her on mechanical ventilation. Her kidney function continued to decline, and the ICU shellfish weigher discussed goals of care with the family. The patient's code status was changed to DNR at the request of her granddaughter, who opted not to pursue invasive procedures but wished to continue medications to assess for improvement.Despite efforts, the patient did not respond to antibiotic therapy or pressor support and remained in severe distress, despite maximum doses of fentanyl. Discussions at the bedside with her granddaughter, Jannet, led to a decision to withdraw further management in favor of comfort measures.Night Senior ICU resident (PGY3),Dr Corey pronounced her at 20:02 on 03/28/24, with family present. #Hospital course Problem list: # Comfort care # Acute encephalopathy # Opiate dependence, on METHADONE # History of anxiety # Undifferentiated shock # Lactic acidosis # HFrEF EF 30-35% # Hx of dilated cardiomyopathy # Hx of Takotsubo cardiomyopathy # Hx of arrhythmia, unspecified # Hx of essential hypertension # Acute hypoxic respiratory failure # Recently diagnosed SCC of lung # DEVON # Anuria # Primary metabolic alkalosis ? improving # Hypokalemia # Small bowel obstruction # S/p small bowel resection on 03/27 # Leukocytosis # Chronic low back pain # Opiate dependency on METHADONE -- Rancho schaeffer MD,PGY2 Additional Data Confirmation of as documented by pronouncing clinician: no pulse, no respirations, no heart sounds and pupils fixed and dilated Family: at bedside Attending/PCP notified?: Yes Attending physician: Cm Nance MD Was code activated?: No (DNR) Organ bank notified?: Yes Visit Providers Provider Primary care physician: Physician No Primary/Family Consults: 03/26/24 09:42 Consult to General Surgery Stat Comment: Consulting Provider: Gabe Abdi 03/28/24 14:48 Referral Wound Care Routine Comment: 03/28/24 15:56 Referral Nutritional Services Routine Comment: Instructions: DTi to coccyx Diagnosis PCOD Cause of : Cardiopulmonary arrest Contributing Factors (1) Intestinal adhesions [bands], unspecified as to partial versus complete obstruction: Discharge Plan Plan Patient Disposition: Prescriptions/Referrals Referrals: No Primary/Family,Physician [Primary Care Provider] - Patient/Caregiver Discharge Instructions Print Language: Estonian
--- NOTE | 2024-04-01 08:42 | PC.CM ---
Patient was opened to [facility]. I let them know that patient .
== END 2024-03-28 20:02 | disposition expired | DRG 329 ==
LOC: SERX 14:42 → S2NX 19:14 → S2SX 03-27 13:50 → S2NX 03-28 09:24 → SERHOLD 03-28 09:24
PROVIDERS: Internal Medicine; Student in an Organized Health Care Education/Training Program; Surgery; Admitting Provider Internal Medicine; Emergency Provider Emergency Medicine; Visit Provider Internal Medicine
PROC: 0DT80ZZ Resection of Small Intestine, Open Approach (ICD-10-PCS; CPT 49000; principal; 2024-03-27 11:00)
DX: K56.691 Other complete intestinal obstruction (principal); G93.41 Metabolic encephalopathy; J96.01 Acute respiratory failure with hypoxia; C34.90 Malignant neoplasm of unspecified part of unspecified bronchus or lung; E87.3 Alkalosis; I50.22 Chronic systolic (congestive) heart failure; R64 Cachexia; Z68.1 Body mass index [BMI] 19.9 or less, adult; N17.9 Acute kidney failure, unspecified; R57.9 Shock, unspecified; F11.20 Opioid dependence, uncomplicated; I42.0 Dilated cardiomyopathy; R07.89 Other chest pain; I11.0 Hypertensive heart disease with heart failure; Z99.81 Dependence on supplemental oxygen; Z95.0 Presence of cardiac pacemaker; G89.29 Other chronic pain; J44.9 Chronic obstructive pulmonary disease, unspecified; Z87.891 Personal history of nicotine dependence; E78.5 Hyperlipidemia, unspecified; F32.A Depression, unspecified; Z66 Do not resuscitate; K56.52 Intestinal adhesions [bands] with complete obstruction; E87.6 Hypokalemia; Z51.5 Encounter for palliative care; E11.9 Type 2 diabetes mellitus without complications; I25.10 Atherosclerotic heart disease of native coronary artery without angina pectoris; M54.50 Low back pain, unspecified; R34 Anuria and oliguria; I46.9 Cardiac arrest, cause unspecified
CPT/HCPCS: 36415; 36600; 71045; 74018; 74177; 74250; 80053; 80069; 82803; 83605; 83690; 83735; 84100; 84132; 84484; 85025; 85610; 85730; 86850; 86900; 86901; 87081; 93005; 93306; 94002; 94003; 94640; 94664; 96360; 96361; 96374; 96375; 99291; A4649; A9270; J0612; J0694; J1100; J1200; J1643; J1720; J1815; J2060; J2270; J2371; J2405; J2543; J2598; J2704; J2765; J3010; J3480; J3490; J7030; J7040; J7042; J7050; J7120; Q9967; J1644